=== PATIENT | female | born 1965 | race Asian ===

== ENCOUNTER 2020-06-22 20:31 | Inpatient (IN) | payer OTHER ==
[~2020-06-22] VITALS: Ht 154.9 cm; Wt 92.0 kg
[2020-06-22 21:04] LABS: GLUCOSE,POINT OF CARE 308 MG/DL (70-110)
[2020-06-22 21:11] LABS: COVID AG,FIA SOURCE NASOPHARYNGEAL
[2020-06-22] MEDS: OXYGEN THERAPY IH SCH (21:17)
[2020-06-22 21:33] LABS: BASOPHILS % (AUTO) 0.2 % (0.0-2.0); EOSINOPHILS % (AUTO) 0.1 % (1.0-6.0); HEMATOCRIT 43.7 % (36-46); HEMOGLOBIN 14.8 g/dL (12.0-16.0); LYMPHOCYTES % (AUTO) 11.6 % (22.0-44.0); MEAN CORPUSCULAR HEMOGLOBIN 31.8 pg (26.0-34.0); MEAN CORPUSCULAR HGB CONC 33.8 G/dL (31.0-37.0); MEAN CORPUSCULAR VOLUME 94 fL (80-100); MONOCYTES # (AUTO) 0.7 K/uL (0.1-1.0); NEUTROPHILS # (AUTO) 6.7 K/uL (1.8-7.7); NEUTROPHILS % (AUTO) 80.1 % (40.0-70.0); PLATELET COUNT (AUTO) 239 K/uL (150-450); RED BLOOD CELL COUNT(AUTO) 4.64 MIL/uL (4.00-5.20); RED CELL DISTRIBUTION WIDTH 12.4 % (11.5-14.5)
[2020-06-22 21:37] LABS: INFLUENZA TYPE A NEGATIVE FOR TYPE A (NEGATIVE); INFLUENZA TYPE B NEGATIVE FOR TYPE B (NEGATIVE)
[2020-06-22 21:46] LABS: ANION GAP 11 mmol/L (8-16); CALCIUM, TOTAL 8.3 mg/dL (8.8-10.5); CARBON DIOXIDE 22 mmol/L (22-29); CHLORIDE 98 mmol/L (98-107); CREATININE 0.99 mg/dL (0.60-1.30); GLOMERULAR FILTR. RATE CALC 58 mL/min (>60); GLUCOSE,RANDOM 339 mg/dL (70-110); POTASSIUM 3.5 mmol/L (3.5-5.1); SODIUM SERUM 131 mmol/L (136-145); UREA NITROGEN, BLOOD 20 mg/dL (7-18)
[2020-06-22 22:06] LABS: ACETONE,BLOOD NEGATIVE (NEGATIVE)
[2020-06-22 22:10] LABS: ALANINE AMINOTRANSFERASE 27 U/L (12-78); ALBUMIN 2.4 g/dL (3.4-5.0); ALKALINE PHOSPHATASE 80 U/L (46-116); ASPARTATE AMINOTRANSFERASE 45 U/L (15-37); BILIRUBIN,TOTAL 0.4 mg/dL (0.1-1.0); C-REACTIVE PROTEIN QUANT 6.32 mg/dL (0.00-0.30); CREATINE KINASE, TOTAL ONLY 117 U/L (26-192); FERRITIN 807 ng/mL (8-252); FREE T4 (FREE THYROXINE) 1.76 ng/dL (0.76-1.46); LACTATE DEHYDROGENASE 423 U/L (81-234); LIPASE 92 U/L (73-393); THYROID STIMULATING HORMONE 0.83 uIU/mL (0.36-3.74); TOTAL PROTEIN, SERUM 6.8 g/dL (6.4-8.2)
[2020-06-22 22:11] LABS: B-TYPE NATRIURETIC PEPTIDE 14 pg/mL (0-100)
[2020-06-22] MEDS ORDERED: DEXAMETHASONE 4 MG TABLET PO SCH (22:15)
[2020-06-22] MEDS ORDERED: DEXAMETHASONE SOD PHOS 4 MG/ML 5 ML VIAL IVP ONE (22:15)
[2020-06-22] MEDS ORDERED: 0.9% SODIUM CHLORIDE 10 ML SYRINGE IVP PRN (22:15)
[2020-06-22] MEDS ORDERED: ACETAMINOPHEN 325 MG TABLET PO PRN (22:15)
[2020-06-22] MEDS ORDERED: INSULIN REGULAR, HUMAN 100 UNITS/ML IVP ONE (22:15)
[2020-06-22] MEDS ORDERED: ONDANSETRON HCL 4 MG/2 ML VIAL IVP PRN (22:15)
[2020-06-22 22:17] LABS: D-DIMER 0.85 mg/L FEU (0.00-0.50); PROTHROMBIN TIME 10.6 SEC (9.4-11.6)
[2020-06-22] MEDS ORDERED: REMDESIVIR (EUA) 200 MG in SODIUM CHLORIDE 0.9% 210 ML IV ONE (23:00)
[2020-06-23] VITALS (9 sets, daily range): BP systolic 84–120; BP diastolic 36–72
[2020-06-23] MEDS ORDERED: ALBUTEROL SULFATE 2.5 MG/0.5 ML NEB SOLUTION NEB PRN (01:15)
[2020-06-23] MEDS ORDERED: HEPARIN SODIUM,PORCINE 5,000 UNITS/ML VIAL IVP PRN ×2 (01:15)
[2020-06-23] MEDS ORDERED: ONDANSETRON HCL 4 MG/2 ML VIAL IVP PRN (01:15)
[2020-06-23] MEDS ORDERED: MORPHINE SULFATE 2 MG/ML SYRINGE IVP PRN (01:15)
[2020-06-23] MEDS ORDERED: BISACODYL 10 MG RECTAL RECTAL SUPPOSITORY PR PRN (01:15)
[2020-06-23] MEDS ORDERED: IPRATROPIUM BROMIDE 0.5 MG/2.5 ML NEB SOLUTION NEB PRN (01:15)
[2020-06-23] MEDS ORDERED: DEXTROSE 50%-WATER 25 GM/50 ML SYRINGE IVP PRN (01:15)
[2020-06-23 02:10] LABS: PROTHROMBIN TIME 10.9 SEC (9.4-11.6)
[2020-06-23 02:23] LABS: C-REACTIVE PROTEIN QUANT 7.23 mg/dL (0.00-0.30)
[2020-06-23] MEDS: HEPARIN SODIUM 25000 UNITS/D5W 250 ML IV PRN (02:31)
[2020-06-23 03:37] LABS: GLUCOSE,POINT OF CARE 303 MG/DL (70-110)
[2020-06-23] MEDS: INSULIN LISPRO 100 UNITS/ML SQ PRN ×4 (03:45→21:54)
[2020-06-23] MEDS: ZOLPIDEM TARTRATE 5 MG TABLET PO PRN (03:45)
[2020-06-23 05:26] LABS: BASOPHILS % (AUTO) 0.1 % (0.0-2.0); EOSINOPHILS % (AUTO) 0 % (1.0-6.0); HEMATOCRIT 41.7 % (36-46); HEMOGLOBIN 14.5 g/dL (12.0-16.0); LYMPHOCYTES # (AUTO) 0.4 K/uL (1.0-4.8); MEAN CORPUSCULAR HGB CONC 34.8 G/dL (31.0-37.0); MEAN CORPUSCULAR VOLUME 95 fL (80-100); MONOCYTES # (AUTO) 0.2 K/uL (0.1-1.0); MONOCYTES % (AUTO) 3.8 % (2.0-9.0); NEUTROPHILS # (AUTO) 5.5 K/uL (1.8-7.7); PLATELET COUNT (AUTO) 214 K/uL (150-450); RED CELL DISTRIBUTION WIDTH 12.4 % (11.5-14.5)
[2020-06-23 05:27] LABS: GLUCOSE,POINT OF CARE 325 MG/DL (70-110)
[2020-06-23 05:28] LABS: NEUTROPHILS % (AUTO) 89.1 % (40.0-70.0)
[2020-06-23 05:55] LABS: ALANINE AMINOTRANSFERASE 26 U/L (12-78); ALBUMIN 2.3 g/dL (3.4-5.0); ALKALINE PHOSPHATASE 76 U/L (46-116); ANION GAP 11 mmol/L (8-16); ASPARTATE AMINOTRANSFERASE 41 U/L (15-37); BILIRUBIN,TOTAL 0.4 mg/dL (0.1-1.0); C-REACTIVE PROTEIN QUANT 8.39 mg/dL (0.00-0.30); CALCIUM, TOTAL 8.2 mg/dL (8.8-10.5); CARBON DIOXIDE 22 mmol/L (22-29); CHLORIDE 99 mmol/L (98-107); CREATININE 0.78 mg/dL (0.60-1.30); FERRITIN 749 ng/mL (8-252); GLOMERULAR FILTR. RATE CALC > 60 mL/min (>60); POTASSIUM 4.1 mmol/L (3.5-5.1); SODIUM SERUM 132 mmol/L (136-145); TOTAL PROTEIN, SERUM 6.7 g/dL (6.4-8.2); UREA NITROGEN, BLOOD 22 mg/dL (7-18)
[2020-06-23 06:01] LABS: GLUCOSE,RANDOM 405 mg/dL (70-110)
[2020-06-23] MEDS ORDERED: INSULIN LISPRO 100 UNITS/ML SQ ONE (06:30)
[2020-06-23] MEDS ORDERED: INSULIN GLARGINE,HUM.REC.ANLOG 100 UNITS/ML SQ ONE (06:30)
[2020-06-23] MEDS ORDERED: GLIP5 PO (07:22)
[2020-06-23] MEDS ORDERED: METF-960 PO (07:22)
[2020-06-23] MEDS ORDERED: INSU100V SQ (07:23)
[2020-06-23] MEDS ORDERED: HEPARIN SODIUM,PORCINE 5,000 UNITS/ML VIAL SQ SCH (08:00)
[2020-06-23] MEDS: OXYGEN THERAPY IH SCH ×2 (08:17→20:00)
[2020-06-23 08:21] LABS: GLUCOSE,POINT OF CARE 337 MG/DL (70-110)
[2020-06-23] MEDS: DOCUSATE SODIUM 100 MG CAPSULE PO SCH ×3 (08:34→21:16)
[2020-06-23 09:52] LABS: ABG A-A DIFF O2 547.1 mmHg (10-20.0); ABG BASE EXCESS -2.7 mmol/L (-2.0-3.0); ABG CARBOXYHEMOGLOBIN 0.2 % (0.0-1.5); ABG HCO3 22.5 mmol/L (22.0-26.0); ABG METHEMOGLOBIN 0.1 % (0.0-1.5); ABG OXYGEN CONTENT 18.3 mL/dL (15.0-23.0); ABG OXYGEN SATURATION 89.8 % (95.0-98.0); ABG OXYHEMOGLOBIN 89.5 % (94.0-100.0); ABG PCO2 36 mmHg (35-45); ABG PH 7.405 (7.35-7.450); ABG TOTAL HEMOGLOBIN 14.6 G/dL (12.0-18.0); PO2, ARTERIAL BG 58.2 mmHg (84.0-92.0); SOURCE, BLOOD GAS ARTERIAL; TEMPERATURE, FAHRENHEIT, BG 98.3 FAHREN (96.0-98.6)
[2020-06-23 09:53] LABS: O2 DEVICE,BLOOD GAS HI FL CANNULA (ROOM AIR); SITE, BLOOD GAS LFT RADIAL
[2020-06-23 19:14] LABS: GLUCOSE,POINT OF CARE 255 MG/DL (70-110)
[2020-06-23 19:25] LABS: GLUCOSE,POINT OF CARE 246 MG/DL (70-110)
[2020-06-23] MEDS ORDERED: SODIUM CHLORIDE 0.9% 250 ML IV ONE (20:45)
[2020-06-23] MEDS ORDERED: CHOLECALCIFEROL (VIT D3) 1,000 UNITS [25 MCG] TABLET PO ONE (21:00)
[2020-06-23] MEDS: ZINC SULFATE 220 MG CAPSULE PO SCH (21:16)
[2020-06-23] MEDS: FAMOTIDINE 20 MG TABLET PO SCH (21:16)
[2020-06-23] MEDS: ASCORBIC ACID 500 MG TABLET PO SCH (21:16)
[2020-06-23] MEDS: DEXAMETHASONE 2 MG TABLET PO SCH (21:20)
[2020-06-23] MEDS: REMDESIVIR (EUA) 100 MG in SODIUM CHLORIDE 0.9% 230 ML IV SCH (22:42)
[2020-06-24] VITALS: BP 105/44
[2020-06-24 00:10] LABS: GLUCOSE,POINT OF CARE 228 MG/DL (70-110)
[2020-06-24 04:00] VITALS: BP 101/64
[2020-06-24] MEDS: INSULIN LISPRO 100 UNITS/ML SQ PRN ×4 (05:29→19:56)
[2020-06-24 05:52] LABS: BASOPHILS % (AUTO) 0.1 % (0.0-2.0); EOSINOPHILS % (AUTO) 0 % (1.0-6.0); HEMATOCRIT 42.4 % (36-46); HEMOGLOBIN 14.7 g/dL (12.0-16.0); LYMPHOCYTES # (AUTO) 0.9 K/uL (1.0-4.8); LYMPHOCYTES % (AUTO) 9.3 % (22.0-44.0); MEAN CORPUSCULAR HEMOGLOBIN 32.7 pg (26.0-34.0); MEAN CORPUSCULAR HGB CONC 34.7 G/dL (31.0-37.0); MEAN CORPUSCULAR VOLUME 94 fL (80-100); MONOCYTES # (AUTO) 0.7 K/uL (0.1-1.0); NEUTROPHILS % (AUTO) 83.6 % (40.0-70.0); PLATELET COUNT (AUTO) 250 K/uL (150-450); RED BLOOD CELL COUNT(AUTO) 4.49 MIL/uL (4.00-5.20); RED CELL DISTRIBUTION WIDTH 11.9 % (11.5-14.5)
[2020-06-24 06:04] LABS: ALANINE AMINOTRANSFERASE 39 U/L (12-78); ALBUMIN 2.2 g/dL (3.4-5.0); ALKALINE PHOSPHATASE 74 U/L (46-116); ANION GAP 9 mmol/L (8-16); ASPARTATE AMINOTRANSFERASE 45 U/L (15-37); BILIRUBIN,TOTAL 0.3 mg/dL (0.1-1.0); C-REACTIVE PROTEIN QUANT 5.36 mg/dL (0.00-0.30); CALCIUM, TOTAL 8.4 mg/dL (8.8-10.5); CARBON DIOXIDE 23 mmol/L (22-29); CHLORIDE 102 mmol/L (98-107); CREATININE 0.88 mg/dL (0.60-1.30); FERRITIN 702 ng/mL (8-252); GLOMERULAR FILTR. RATE CALC > 60 mL/min (>60); GLUCOSE,RANDOM 339 mg/dL (70-110); POTASSIUM 4.1 mmol/L (3.5-5.1); SODIUM SERUM 134 mmol/L (136-145); TOTAL PROTEIN, SERUM 6.6 g/dL (6.4-8.2); UREA NITROGEN, BLOOD 31 mg/dL (7-18)
[2020-06-24 08:00] VITALS: BP 105/63
[2020-06-24 08:00] LABS: GLUCOSE,POINT OF CARE 331 MG/DL (70-110)
[2020-06-24] MEDS: CHOLECALCIFEROL (VIT D3) 1,000 UNITS [25 MCG] TABLET PO SCH (08:32)
[2020-06-24] MEDS: ASCORBIC ACID 500 MG TABLET PO SCH ×2 (08:32→19:57)
[2020-06-24] MEDS: DOCUSATE SODIUM 100 MG CAPSULE PO SCH ×2 (08:32→19:57)
[2020-06-24] MEDS: FAMOTIDINE 20 MG TABLET PO SCH ×2 (08:32→19:57)
[2020-06-24] MEDS: DEXAMETHASONE 2 MG TABLET PO SCH (08:32)
[2020-06-24] MEDS: ZINC SULFATE 220 MG CAPSULE PO SCH ×2 (08:32→19:57)
[2020-06-24] MEDS: OXYGEN THERAPY IH SCH ×2 (08:33→19:57)
[2020-06-24 08:50] LABS: D-DIMER 0.39 mg/L FEU (0.00-0.50)
[2020-06-24 12:00] VITALS: BP 118/72
[2020-06-24] MEDS: HEPARIN SODIUM 25000 UNITS/D5W 250 ML IV PRN (13:34)
[2020-06-24 16:00] VITALS: BP 108/66
[2020-06-24 16:22] LABS: GLUCOSE,POINT OF CARE 315 MG/DL (70-110)
[2020-06-24 18:03] LABS: GLUCOSE,POINT OF CARE 351 MG/DL (70-110)
[2020-06-24 20:00] VITALS: BP 114/74
[2020-06-24] MEDS: ZOLPIDEM TARTRATE 5 MG TABLET PO PRN (22:54)
[2020-06-24] MEDS: REMDESIVIR (EUA) 100 MG in SODIUM CHLORIDE 0.9% 230 ML IV SCH (22:55)
[2020-06-24] MEDS ORDERED: SODIUM CHLORIDE 0.9% 250 ML IV ONE (23:13)
[2020-06-25] VITALS: BP 99/53
[2020-06-25 01:08] LABS: GLUCOSE,POINT OF CARE 398 MG/DL (70-110)
[2020-06-25 04:00] VITALS: BP 110/50
[2020-06-25] MEDS: INSULIN LISPRO 100 UNITS/ML SQ PRN ×4 (05:33→20:05)
[2020-06-25 06:01] LABS: D-DIMER 0.37 mg/L FEU (0.00-0.50)
[2020-06-25 06:27] LABS: BASOPHILS % (AUTO) 0.1 % (0.0-2.0); EOSINOPHILS % (AUTO) 0 % (1.0-6.0); HEMATOCRIT 40.2 % (36-46); HEMOGLOBIN 13.6 g/dL (12.0-16.0); LYMPHOCYTES # (AUTO) 1.3 K/uL (1.0-4.8); LYMPHOCYTES % (AUTO) 8.1 % (22.0-44.0); MEAN CORPUSCULAR HEMOGLOBIN 32.1 pg (26.0-34.0); MEAN CORPUSCULAR HGB CONC 33.9 G/dL (31.0-37.0); MEAN CORPUSCULAR VOLUME 95 fL (80-100); MONOCYTES # (AUTO) 1.2 K/uL (0.1-1.0); MONOCYTES % (AUTO) 7.7 % (2.0-9.0); NEUTROPHILS # (AUTO) 13.1 K/uL (1.8-7.7); NEUTROPHILS % (AUTO) 84.1 % (40.0-70.0); PLATELET COUNT (AUTO) 296 K/uL (150-450); RED BLOOD CELL COUNT(AUTO) 4.25 MIL/uL (4.00-5.20); RED CELL DISTRIBUTION WIDTH 12.3 % (11.5-14.5)
[2020-06-25 06:54] LABS: GLUCOSE,POINT OF CARE 236 MG/DL (70-110)
[2020-06-25 07:46] LABS: ALANINE AMINOTRANSFERASE 32 U/L (12-78); ALBUMIN 2.1 g/dL (3.4-5.0); ALKALINE PHOSPHATASE 72 U/L (46-116); ANION GAP 11 mmol/L (8-16); ASPARTATE AMINOTRANSFERASE 28 U/L (15-37); BILIRUBIN,TOTAL 0.3 mg/dL (0.1-1.0); C-REACTIVE PROTEIN QUANT 1.97 mg/dL (0.00-0.30); CALCIUM, TOTAL 8.9 mg/dL (8.8-10.5); CARBON DIOXIDE 22 mmol/L (22-29); CHLORIDE 105 mmol/L (98-107); CREATININE 0.84 mg/dL (0.60-1.30); FERRITIN 579 ng/mL (8-252); GLOMERULAR FILTR. RATE CALC > 60 mL/min (>60); GLUCOSE,RANDOM 259 mg/dL (70-110); PHOSPHORUS 3.8 mg/dL (2.5-4.9); SODIUM SERUM 138 mmol/L (136-145); TOTAL PROTEIN, SERUM 6.1 g/dL (6.4-8.2); UREA NITROGEN, BLOOD 31 mg/dL (7-18)
[2020-06-25 08:00] VITALS: BP 113/59
[2020-06-25] MEDS: OXYGEN THERAPY IH SCH ×2 (08:06→20:03)
[2020-06-25] MEDS: ASCORBIC ACID 500 MG TABLET PO SCH ×2 (08:07→20:03)
[2020-06-25] MEDS: DOCUSATE SODIUM 100 MG CAPSULE PO SCH ×2 (08:07→20:03)
[2020-06-25] MEDS: DEXAMETHASONE 2 MG TABLET PO SCH (08:07)
[2020-06-25] MEDS: CHOLECALCIFEROL (VIT D3) 1,000 UNITS [25 MCG] TABLET PO SCH (08:08)
[2020-06-25] MEDS: ZINC SULFATE 220 MG CAPSULE PO SCH ×2 (08:08→20:03)
[2020-06-25] MEDS: FAMOTIDINE 20 MG TABLET PO SCH ×2 (08:09→20:03)
[2020-06-25 12:00] VITALS: BP 101/61
[2020-06-25 15:59] LABS: GLUCOSE,POINT OF CARE 329 MG/DL (70-110)
[2020-06-25 16:00] VITALS: BP 120/78
[2020-06-25] MEDS ORDERED: DEXTROSE 5%-WATER 1,000 ML IV SCH ×2 (18:45→20:00)
[2020-06-25] MEDS ORDERED: DEXTROSE 50%-WATER 25 GM/50 ML SYRINGE IVP PRN ×2 (18:45→19:00)
[2020-06-25 19:19] LABS: GLUCOSE,POINT OF CARE 361 MG/DL (70-110)
[2020-06-25 20:00] VITALS: BP 106/61
[2020-06-25] MEDS ORDERED: INSULIN REGULAR, HUMAN 100 UNITS in SODIUM CHLORIDE 0.9% 99 ML IV PRN ×2 (20:00)
[2020-06-25] MEDS: ZOLPIDEM TARTRATE 5 MG TABLET PO PRN (20:03)
[2020-06-25] MEDS: INSULIN GLARGINE,HUM.REC.ANLOG 100 UNITS/ML SQ SCH (20:05)
[2020-06-25] MEDS ORDERED: INSULIN GLARGINE,HUM.REC.ANLOG 100 UNITS/ML SQ SCH (21:00)
[2020-06-25] MEDS: REMDESIVIR (EUA) 100 MG in SODIUM CHLORIDE 0.9% 230 ML IV SCH (23:01)
[2020-06-25] MEDS ORDERED: SODIUM CHLORIDE 0.9% 250 ML IV ONE (23:03)
[2020-06-26] VITALS: BP 111/65
[2020-06-26 01:01] LABS: GLUCOSE,POINT OF CARE 295 MG/DL (70-110)
[2020-06-26] MEDS: HEPARIN SODIUM 25000 UNITS/D5W 250 ML IV PRN (03:58)
[2020-06-26 04:00] VITALS: BP 105/61
[2020-06-26 06:04] LABS: BASOPHILS % (AUTO) 0.2 % (0.0-2.0); EOSINOPHILS % (AUTO) 0.3 % (1.0-6.0); HEMATOCRIT 39.6 % (36-46); HEMOGLOBIN 13.5 g/dL (12.0-16.0); LYMPHOCYTES # (AUTO) 1.9 K/uL (1.0-4.8); LYMPHOCYTES % (AUTO) 15.4 % (22.0-44.0); MEAN CORPUSCULAR HEMOGLOBIN 32.1 pg (26.0-34.0); MEAN CORPUSCULAR HGB CONC 34.2 G/dL (31.0-37.0); MEAN CORPUSCULAR VOLUME 94 fL (80-100); MONOCYTES % (AUTO) 7.7 % (2.0-9.0); NEUTROPHILS # (AUTO) 9.6 K/uL (1.8-7.7); NEUTROPHILS % (AUTO) 76.4 % (40.0-70.0); PLATELET COUNT (AUTO) 289 K/uL (150-450); RED BLOOD CELL COUNT(AUTO) 4.22 MIL/uL (4.00-5.20); RED CELL DISTRIBUTION WIDTH 12.3 % (11.5-14.5)
[2020-06-26 06:10] LABS: D-DIMER 0.49 mg/L FEU (0.00-0.50)
[2020-06-26 06:26] LABS: ALANINE AMINOTRANSFERASE 28 U/L (12-78); ALBUMIN 2.1 g/dL (3.4-5.0); ALKALINE PHOSPHATASE 79 U/L (46-116); ANION GAP 8 mmol/L (8-16); ASPARTATE AMINOTRANSFERASE 23 U/L (15-37); BILIRUBIN,TOTAL 0.4 mg/dL (0.1-1.0); C-REACTIVE PROTEIN QUANT 2.06 mg/dL (0.00-0.30); CARBON DIOXIDE 24 mmol/L (22-29); CHLORIDE 104 mmol/L (98-107); CREATININE 0.73 mg/dL (0.60-1.30); FERRITIN 527 ng/mL (8-252); GLOMERULAR FILTR. RATE CALC > 60 mL/min (>60); GLUCOSE,RANDOM 143 mg/dL (70-110); POTASSIUM 3.6 mmol/L (3.5-5.1); SODIUM SERUM 136 mmol/L (136-145); UREA NITROGEN, BLOOD 23 mg/dL (7-18)
[2020-06-26 08:00] VITALS: BP 95/62
[2020-06-26] MEDS: OXYGEN THERAPY IH SCH ×2 (08:05→20:35)
[2020-06-26] MEDS: MAGNESIUM HYDROXIDE SUSPENSION 30 ML UDCUP PO PRN (08:06)
[2020-06-26] MEDS: ZINC SULFATE 220 MG CAPSULE PO SCH ×2 (08:06→20:34)
[2020-06-26] MEDS: CHOLECALCIFEROL (VIT D3) 1,000 UNITS [25 MCG] TABLET PO SCH (08:06)
[2020-06-26] MEDS: ASCORBIC ACID 500 MG TABLET PO SCH ×2 (08:06→20:34)
[2020-06-26] MEDS: DEXAMETHASONE 2 MG TABLET PO SCH (08:06)
[2020-06-26] MEDS: DOCUSATE SODIUM 100 MG CAPSULE PO SCH ×2 (08:07→20:34)
[2020-06-26] MEDS: FAMOTIDINE 20 MG TABLET PO SCH ×2 (08:07→20:34)
[2020-06-26] MEDS: INSULIN LISPRO 100 UNITS/ML SQ PRN ×4 (08:08→21:38)
[2020-06-26 08:34] LABS: GLUCOSE,POINT OF CARE 90 MG/DL (70-110)
[2020-06-26 08:37] LABS: GLUCOSE,POINT OF CARE 181 MG/DL (70-110)
[2020-06-26] MEDS: APIXABAN 5 MG TABLET PO SCH ×2 (10:43→20:34)
[2020-06-26 12:00] VITALS: BP 112/68
[2020-06-26 14:27] LABS: GLUCOSE,POINT OF CARE 293 MG/DL (70-110)
[2020-06-26 16:00] VITALS: BP 100/53
[2020-06-26 19:30] LABS: GLUCOSE,POINT OF CARE 381 MG/DL (70-110)
[2020-06-26 20:00] VITALS: BP 110/58
[2020-06-26] MEDS: INSULIN GLARGINE,HUM.REC.ANLOG 100 UNITS/ML SQ SCH (20:37)
[2020-06-26] MEDS: REMDESIVIR (EUA) 100 MG in SODIUM CHLORIDE 0.9% 230 ML IV SCH (22:20)
[2020-06-27] VITALS: BP 113/69
[2020-06-27 04:00] VITALS: BP 98/58
[2020-06-27 04:40] LABS: GLUCOSE,POINT OF CARE 327 MG/DL (70-110)
[2020-06-27 04:40] LABS: GLUCOSE,POINT OF CARE 348 MG/DL (70-110)
[2020-06-27] MEDS: INSULIN LISPRO 100 UNITS/ML SQ PRN ×5 (06:51→20:10)
[2020-06-27 07:11] LABS: GLUCOSE,POINT OF CARE 148 MG/DL (70-110)
[2020-06-27] MEDS ORDERED: LACTULOSE 20 GM/30 ML SOLUTION UDCUP PO PRN (07:30)
[2020-06-27 07:36] LABS: BASOPHILS % (AUTO) 0.2 % (0.0-2.0); EOSINOPHILS % (AUTO) 0.9 % (1.0-6.0); HEMATOCRIT 39.9 % (36-46); HEMOGLOBIN 13.6 g/dL (12.0-16.0); LYMPHOCYTES # (AUTO) 1.4 K/uL (1.0-4.8); LYMPHOCYTES % (AUTO) 11.9 % (22.0-44.0); MEAN CORPUSCULAR HEMOGLOBIN 32.2 pg (26.0-34.0); MEAN CORPUSCULAR HGB CONC 34.1 G/dL (31.0-37.0); MEAN CORPUSCULAR VOLUME 94 fL (80-100); MONOCYTES # (AUTO) 0.8 K/uL (0.1-1.0); MONOCYTES % (AUTO) 7.2 % (2.0-9.0); NEUTROPHILS # (AUTO) 9.3 K/uL (1.8-7.7); NEUTROPHILS % (AUTO) 79.8 % (40.0-70.0); PLATELET COUNT (AUTO) 285 K/uL (150-450); RED BLOOD CELL COUNT(AUTO) 4.23 MIL/uL (4.00-5.20); RED CELL DISTRIBUTION WIDTH 12.2 % (11.5-14.5)
[2020-06-27 07:42] LABS: ANION GAP 10 mmol/L (8-16); CALCIUM, TOTAL 8.2 mg/dL (8.8-10.5); CARBON DIOXIDE 26 mmol/L (22-29); CHLORIDE 105 mmol/L (98-107); CREATININE 0.59 mg/dL (0.60-1.30); GLOMERULAR FILTR. RATE CALC > 60 mL/min (>60); GLUCOSE,RANDOM 111 mg/dL (70-110); POTASSIUM 3.7 mmol/L (3.5-5.1); SODIUM SERUM 141 mmol/L (136-145); UREA NITROGEN, BLOOD 19 mg/dL (7-18)
[2020-06-27 08:00] VITALS: BP 105/65
[2020-06-27] MEDS: ASCORBIC ACID 500 MG TABLET PO SCH ×2 (08:23→20:06)
[2020-06-27] MEDS: DOCUSATE SODIUM 100 MG CAPSULE PO SCH ×2 (08:23→20:06)
[2020-06-27] MEDS: ZINC SULFATE 220 MG CAPSULE PO SCH ×2 (08:23→20:06)
[2020-06-27] MEDS: APIXABAN 5 MG TABLET PO SCH ×2 (08:23→20:06)
[2020-06-27] MEDS: ACETAMINOPHEN 325 MG TABLET PO PRN (08:23)
[2020-06-27] MEDS: DEXAMETHASONE 2 MG TABLET PO SCH (08:24)
[2020-06-27] MEDS: FAMOTIDINE 20 MG TABLET PO SCH ×2 (08:24→20:06)
[2020-06-27] MEDS: CHOLECALCIFEROL (VIT D3) 1,000 UNITS [25 MCG] TABLET PO SCH (08:24)
[2020-06-27] MEDS: INSULIN GLARGINE,HUM.REC.ANLOG 100 UNITS/ML SQ SCH ×2 (08:25→20:10)
[2020-06-27 08:28] LABS: GLUCOSE,POINT OF CARE 147 MG/DL (70-110)
[2020-06-27 12:00] VITALS: BP 112/60
[2020-06-27 14:17] LABS: GLUCOSE,POINT OF CARE 212 MG/DL (70-110)
[2020-06-27 16:00] VITALS: BP 107/70
[2020-06-27 18:41] LABS: GLUCOSE,POINT OF CARE 374 MG/DL (70-110)
[2020-06-27 20:00] VITALS: BP 97/60
[2020-06-27 20:32] LABS: GLUCOSE,POINT OF CARE 303 MG/DL (70-110)
[2020-06-28] VITALS (7 sets, daily range): BP systolic 90–122; BP diastolic 30–82
[2020-06-28] MEDS: HYDROCODONE/ACETAMINOPHEN 5-325 MG TABLET PO PRN (03:28)
[2020-06-28] MEDS: INSULIN LISPRO 100 UNITS/ML SQ PRN ×2 (06:41→13:45)
[2020-06-28 07:14] LABS: GLUCOSE,POINT OF CARE 167 MG/DL (70-110)
[2020-06-28 07:15] LABS: ALANINE AMINOTRANSFERASE 18 U/L (12-78); ALKALINE PHOSPHATASE 83 U/L (46-116); ANION GAP 6 mmol/L (8-16); ASPARTATE AMINOTRANSFERASE 19 U/L (15-37); BILIRUBIN,TOTAL 0.5 mg/dL (0.1-1.0); C-REACTIVE PROTEIN QUANT 8.29 mg/dL (0.00-0.30); CARBON DIOXIDE 25 mmol/L (22-29); CHLORIDE 102 mmol/L (98-107); CREATININE 0.64 mg/dL (0.60-1.30); FERRITIN 492 ng/mL (8-252); GLOMERULAR FILTR. RATE CALC > 60 mL/min (>60); GLUCOSE,RANDOM 190 mg/dL (70-110); POTASSIUM 4.4 mmol/L (3.5-5.1); SODIUM SERUM 133 mmol/L (136-145); TOTAL PROTEIN, SERUM 6.3 g/dL (6.4-8.2); UREA NITROGEN, BLOOD 25 mg/dL (7-18)
[2020-06-28 08:25] LABS: ABG A-A DIFF O2 627.9 mmHg (10-20.0); ABG BASE EXCESS -1.7 mmol/L (-2.0-3.0); ABG CARBOXYHEMOGLOBIN 0.9 % (0.0-1.5); ABG HCO3 23.4 mmol/L (22.0-26.0); ABG METHEMOGLOBIN 0.3 % (0.0-1.5); ABG OXYGEN SATURATION 86.6 % (95.0-98.0); ABG OXYHEMOGLOBIN 85.6 % (94.0-100.0); ABG PCO2 34 mmHg (35-45); ABG PH 7.442 (7.35-7.450); PO2, ARTERIAL BG 51.5 mmHg (84.0-92.0); SOURCE, BLOOD GAS ARTERIAL; TEMPERATURE, FAHRENHEIT, BG 98.6 FAHREN (96.0-98.6)
[2020-06-28 08:26] LABS: O2 DEVICE,BLOOD GAS HI FL CANNULA (ROOM AIR); SITE, BLOOD GAS RT RADIAL
[2020-06-28] MEDS: MAGNESIUM HYDROXIDE SUSPENSION 30 ML UDCUP PO PRN (08:43)
[2020-06-28] MEDS: APIXABAN 5 MG TABLET PO SCH ×2 (08:44→20:51)
[2020-06-28] MEDS: DOCUSATE SODIUM 100 MG CAPSULE PO SCH ×2 (08:44→20:51)
[2020-06-28] MEDS: CHOLECALCIFEROL (VIT D3) 1,000 UNITS [25 MCG] TABLET PO SCH (08:44)
[2020-06-28] MEDS: ASCORBIC ACID 500 MG TABLET PO SCH ×2 (08:44→20:50)
[2020-06-28] MEDS: DEXAMETHASONE 2 MG TABLET PO SCH (08:44)
[2020-06-28] MEDS: FAMOTIDINE 20 MG TABLET PO SCH ×2 (08:45→20:50)
[2020-06-28] MEDS: INSULIN GLARGINE,HUM.REC.ANLOG 100 UNITS/ML SQ SCH (08:48)
[2020-06-28] MEDS: ZINC SULFATE 220 MG CAPSULE PO SCH ×2 (10:54→20:51)
[2020-06-28] MEDS ORDERED: PROPOFOL 1000 MG/ISO-OSM 100 ML IV ONE (11:54)
[2020-06-28] MEDS ORDERED: ETOMIDATE 2 MG/ML 10 ML VIAL ONE (11:59)
[2020-06-28] MEDS ORDERED: SODIUM CHLORIDE 0.9% 250 ML IV ONE (12:58)
[2020-06-28] MEDS ORDERED: SODIUM CHLORIDE 0.9% 500 ML IV ONE (12:58)
[2020-06-28] MEDS: FentaNYL CITRATE PF 500 MCG in DEXTROSE 5%-WATER 90 ML IV PRN ×2 (13:17→21:26)
[2020-06-28] MEDS: CISATRACURIUM BESYLATE 50 MG in DEXTROSE 5%-WATER 245 ML IV PRN ×3 (13:42→22:21)
[2020-06-28] MEDS ORDERED: INSULIN GLARGINE,HUM.REC.ANLOG 100 UNITS/ML SQ STA (14:58)
[2020-06-28 15:29] LABS: ABG A-A DIFF O2 525.7 mmHg (10-20.0); ABG BASE EXCESS -5.4 mmol/L (-2.0-3.0); ABG CARBOXYHEMOGLOBIN 0.4 % (0.0-1.5); ABG HCO3 18.2 mmol/L (22.0-26.0); ABG METHEMOGLOBIN 0.1 % (0.0-1.5); ABG OXYGEN CONTENT 21.3 mL/dL (15.0-23.0); ABG OXYGEN SATURATION 95.5 % (95.0-98.0); ABG TOTAL HEMOGLOBIN 15.9 G/dL (12.0-18.0); PO2, ARTERIAL BG 97.4 mmHg (84.0-92.0); SOURCE, BLOOD GAS ARTERIAL; TEMPERATURE, FAHRENHEIT, BG 98.6 FAHREN (96.0-98.6)
[2020-06-28 15:31] LABS: ABG PCO2 90 mmHg (35-45); ABG PH 7.061 (7.35-7.450); O2 DEVICE,BLOOD GAS VENTILATOR (ROOM AIR); SITE, BLOOD GAS ARTERIAL LINE; VT, ABG 400 ml
[2020-06-28 15:32] LABS: PEEP,BG 10 cm H2O
[2020-06-28] MEDS ORDERED: NOREPINEPHRINE 4 MG/D5%-WATER 250 ML IV PRN (16:00)
[2020-06-28 16:48] LABS: ABG A-A DIFF O2 552.8 mmHg (10-20.0); ABG BASE EXCESS -7.3 mmol/L (-2.0-3.0); ABG CARBOXYHEMOGLOBIN 0.9 % (0.0-1.5); ABG HCO3 17.8 mmol/L (22.0-26.0); ABG METHEMOGLOBIN 0.3 % (0.0-1.5); ABG OXYGEN CONTENT 20.9 mL/dL (15.0-23.0); ABG OXYGEN SATURATION 96.3 % (95.0-98.0); ABG OXYHEMOGLOBIN 95.1 % (94.0-100.0); ABG PCO2 64 mmHg (35-45); ABG TOTAL HEMOGLOBIN 15.6 G/dL (12.0-18.0); PO2, ARTERIAL BG 95.8 mmHg (84.0-92.0); SOURCE, BLOOD GAS ARTERIAL; TEMPERATURE, FAHRENHEIT, BG 98.6 FAHREN (96.0-98.6)
[2020-06-28 16:50] LABS: ABG PH 7.145 (7.35-7.450); O2 DEVICE,BLOOD GAS VENTILATOR (ROOM AIR); PEEP,BG 10 cm H2O; SITE, BLOOD GAS ARTERIAL LINE; VT, ABG 450 ml
[2020-06-28] MEDS: MIDAZOLAM HCL 100 MG in DEXTROSE 5%-WATER 180 ML IV PRN ×2 (17:12→19:08)
[2020-06-28] MEDS: ALBUMIN HUMAN 25%-25GM/100ML 100 ML IV SCH ×2 (17:13→23:42)
[2020-06-28 17:44] LABS: GLUCOSE,POINT OF CARE 578 MG/DL (70-110)
[2020-06-28 17:44] LABS: GLUCOSE,POINT OF CARE 536 MG/DL (70-110)
[2020-06-28] MEDS: INSULIN REGULAR, HUMAN 100 UNITS in SODIUM CHLORIDE 0.9% 99 ML IV PRN ×2 (19:05)
[2020-06-28 19:10] LABS: GLUCOSE,POINT OF CARE 406 MG/DL (70-110)
[2020-06-28] MEDS ORDERED: INSULIN REGULAR, HUMAN 100 UNITS in SODIUM CHLORIDE 0.9% 99 ML IV PRN ×2 (20:00)
[2020-06-28] MEDS ORDERED: DEXTROSE 5%-WATER 1,000 ML IV SCH (20:00)
[2020-06-28] MEDS ORDERED: DEXTROSE 50%-WATER 25 GM/50 ML SYRINGE IVP PRN (20:00)
[2020-06-29] VITALS: BP 107/67
[2020-06-29 04:00] VITALS: BP 101/64
[2020-06-29 05:33] LABS: BASOPHILS % (AUTO) 0.1 % (0.0-2.0); EOSINOPHILS % (AUTO) 0.5 % (1.0-6.0); HEMATOCRIT 35.6 % (36-46); HEMOGLOBIN 12.1 g/dL (12.0-16.0); LYMPHOCYTES # (AUTO) 1.1 K/uL (1.0-4.8); LYMPHOCYTES % (AUTO) 6.5 % (22.0-44.0); MEAN CORPUSCULAR HEMOGLOBIN 32.3 pg (26.0-34.0); MEAN CORPUSCULAR HGB CONC 33.9 G/dL (31.0-37.0); MEAN CORPUSCULAR VOLUME 95 fL (80-100); MONOCYTES % (AUTO) 6.2 % (2.0-9.0); PLATELET COUNT (AUTO) 354 K/uL (150-450); RED BLOOD CELL COUNT(AUTO) 3.73 MIL/uL (4.00-5.20); RED CELL DISTRIBUTION WIDTH 12.4 % (11.5-14.5)
[2020-06-29] MEDS: CISATRACURIUM BESYLATE 50 MG in DEXTROSE 5%-WATER 245 ML IV PRN ×4 (05:33→21:56)
[2020-06-29] MEDS: INSULIN REGULAR, HUMAN 100 UNITS in SODIUM CHLORIDE 0.9% 99 ML IV PRN ×2 (05:35)
[2020-06-29 05:45] LABS: NEUTROPHILS % (AUTO) 86.7 % (40.0-70.0)
[2020-06-29 06:16] LABS: ALANINE AMINOTRANSFERASE 23 U/L (12-78); ALBUMIN 2.8 g/dL (3.4-5.0); ALKALINE PHOSPHATASE 70 U/L (46-116); ANION GAP 6 mmol/L (8-16); ASPARTATE AMINOTRANSFERASE 15 U/L (15-37); BILIRUBIN,TOTAL 0.5 mg/dL (0.1-1.0); C-REACTIVE PROTEIN QUANT 6.81 mg/dL (0.00-0.30); CALCIUM, TOTAL 8.4 mg/dL (8.8-10.5); CARBON DIOXIDE 27 mmol/L (22-29); CHLORIDE 99 mmol/L (98-107); CREATININE 0.71 mg/dL (0.60-1.30); FERRITIN 509 ng/mL (8-252); GLOMERULAR FILTR. RATE CALC > 60 mL/min (>60); GLUCOSE,RANDOM 154 mg/dL (70-110); SODIUM SERUM 132 mmol/L (136-145); TOTAL PROTEIN, SERUM 6.6 g/dL (6.4-8.2); UREA NITROGEN, BLOOD 25 mg/dL (7-18)
[2020-06-29] MEDS: PROPOFOL 1000 MG/ISO-OSM 100 ML IV PRN ×2 (07:51→18:13)
[2020-06-29] MEDS: ALBUMIN HUMAN 25%-25GM/100ML 100 ML IV SCH ×2 (07:51→17:48)
[2020-06-29] MEDS: CHOLECALCIFEROL (VIT D3) 1,000 UNITS [25 MCG] TABLET PO SCH (07:52)
[2020-06-29] MEDS: FAMOTIDINE 20 MG TABLET PO SCH ×2 (07:52→20:02)
[2020-06-29] MEDS: DOCUSATE SODIUM 100 MG CAPSULE PO SCH ×2 (07:53→20:02)
[2020-06-29] MEDS: ASCORBIC ACID 500 MG TABLET PO SCH ×2 (07:53→20:02)
[2020-06-29] MEDS: ZINC SULFATE 220 MG CAPSULE PO SCH ×2 (07:53→20:02)
[2020-06-29] MEDS: APIXABAN 5 MG TABLET PO SCH ×2 (07:53→20:02)
[2020-06-29] MEDS: DEXAMETHASONE 2 MG TABLET PO SCH (07:53)
[2020-06-29 08:00] VITALS: BP 133/76
[2020-06-29 08:24] LABS: GLUCOSE,POINT OF CARE 443 MG/DL (70-110)
[2020-06-29 08:24] LABS: GLUCOSE,POINT OF CARE 209 MG/DL (70-110)
[2020-06-29 08:24] LABS: GLUCOSE,POINT OF CARE 438 MG/DL (70-110)
[2020-06-29 08:24] LABS: GLUCOSE,POINT OF CARE 138 MG/DL (70-110)
[2020-06-29 08:24] LABS: GLUCOSE,POINT OF CARE 193 MG/DL (70-110)
[2020-06-29 08:24] LABS: GLUCOSE,POINT OF CARE 481 MG/DL (70-110)
[2020-06-29 08:24] LABS: GLUCOSE,POINT OF CARE 191 MG/DL (70-110)
[2020-06-29 08:24] LABS: GLUCOSE,POINT OF CARE 142 MG/DL (70-110)
[2020-06-29 08:24] LABS: GLUCOSE,POINT OF CARE 223 MG/DL (70-110)
[2020-06-29 08:24] LABS: GLUCOSE,POINT OF CARE 177 MG/DL (70-110)
[2020-06-29] MEDS ORDERED: INSULIN GLARGINE,HUM.REC.ANLOG 100 UNITS/ML SQ SCH (09:00)
[2020-06-29] MEDS: INSULIN GLARGINE,HUM.REC.ANLOG 100 UNITS/ML SQ SCH ×2 (09:10→20:05)
[2020-06-29] MEDS: FentaNYL CITRATE PF 500 MCG in DEXTROSE 5%-WATER 90 ML IV PRN ×2 (09:32→22:13)
[2020-06-29] MEDS: MIDAZOLAM HCL 100 MG in DEXTROSE 5%-WATER 180 ML IV PRN (10:18)
[2020-06-29 11:09] LABS: ABG A-A DIFF O2 478.7 mmHg (10-20.0); ABG CARBOXYHEMOGLOBIN 0.3 % (0.0-1.5); ABG METHEMOGLOBIN 0.3 % (0.0-1.5); ABG OXYGEN CONTENT 16.5 mL/dL (15.0-23.0); ABG OXYGEN SATURATION 98.8 % (95.0-98.0); ABG OXYHEMOGLOBIN 98.2 % (94.0-100.0); ABG PCO2 40 mmHg (35-45); ABG PH 7.377 (7.35-7.450); ABG TOTAL HEMOGLOBIN 11.8 G/dL (12.0-18.0); O2 DEVICE,BLOOD GAS VENTILATOR (ROOM AIR); PO2, ARTERIAL BG 120.6 mmHg (84.0-92.0); SITE, BLOOD GAS ARTERIAL LINE; SOURCE, BLOOD GAS ARTERIAL; TEMPERATURE, FAHRENHEIT, BG 99.3 FAHREN (96.0-98.6)
[2020-06-29 11:10] LABS: PEEP,BG 10 cm H2O; VT, ABG 450 ml
[2020-06-29 12:00] VITALS: BP 108/65
[2020-06-29] MEDS ORDERED: DEXTROSE 50%-WATER 25 GM/50 ML SYRINGE IVP PRN ×2 (13:30→18:30)
[2020-06-29] MEDS: INSULIN LISPRO 100 UNITS/ML SQ PRN ×2 (13:44→18:12)
[2020-06-29] MEDS: CefTRIAXone 1 GM/DEXTROSE 50 ML IV SCH (14:47)
[2020-06-29 16:00] VITALS: BP 117/69
[2020-06-29 20:00] VITALS: BP 109/62
[2020-06-29 20:29] LABS: GLUCOSE,POINT OF CARE 182 MG/DL (70-110)
[2020-06-29 20:30] LABS: GLUCOSE,POINT OF CARE 282 MG/DL (70-110)
[2020-06-29 20:30] LABS: GLUCOSE,POINT OF CARE 288 MG/DL (70-110)
[2020-06-29 20:30] LABS: GLUCOSE,POINT OF CARE 317 MG/DL (70-110)
[2020-06-30] VITALS: BP 119/64
[2020-06-30] MEDS: ALBUMIN HUMAN 25%-25GM/100ML 100 ML IV SCH ×4 (00:18→23:06)
[2020-06-30] MEDS: INSULIN LISPRO 100 UNITS/ML SQ PRN ×5 (00:54→23:17)
[2020-06-30 01:02] LABS: GLUCOSE,POINT OF CARE 301 MG/DL (70-110)
[2020-06-30 04:00] VITALS: BP 119/66
[2020-06-30] MEDS: PROPOFOL 1000 MG/ISO-OSM 100 ML IV PRN ×4 (04:08→20:44)
[2020-06-30] MEDS: MIDAZOLAM HCL 100 MG in DEXTROSE 5%-WATER 180 ML IV PRN ×2 (04:15→22:27)
[2020-06-30 05:47] LABS: BASOPHILS % (AUTO) 0.2 % (0.0-2.0); EOSINOPHILS % (AUTO) 0.4 % (1.0-6.0); HEMOGLOBIN 11.8 g/dL (12.0-16.0); LYMPHOCYTES # (AUTO) 0.8 K/uL (1.0-4.8); LYMPHOCYTES % (AUTO) 7.3 % (22.0-44.0); MEAN CORPUSCULAR HGB CONC 33.8 G/dL (31.0-37.0); MEAN CORPUSCULAR VOLUME 95 fL (80-100); MONOCYTES # (AUTO) 0.8 K/uL (0.1-1.0); MONOCYTES % (AUTO) 7.3 % (2.0-9.0); NEUTROPHILS # (AUTO) 9.6 K/uL (1.8-7.7); NEUTROPHILS % (AUTO) 84.8 % (40.0-70.0); PLATELET COUNT (AUTO) 358 K/uL (150-450); RED CELL DISTRIBUTION WIDTH 12.4 % (11.5-14.5)
[2020-06-30] MEDS: FentaNYL CITRATE PF 500 MCG in DEXTROSE 5%-WATER 90 ML IV PRN ×2 (07:41→18:04)
[2020-06-30] MEDS: DOCUSATE SODIUM 100 MG CAPSULE PO SCH ×2 (07:42→20:45)
[2020-06-30] MEDS: FAMOTIDINE 20 MG TABLET PO SCH ×2 (07:42→20:45)
[2020-06-30] MEDS: CISATRACURIUM BESYLATE 50 MG in DEXTROSE 5%-WATER 245 ML IV PRN ×3 (07:42→23:06)
[2020-06-30] MEDS: ZINC SULFATE 220 MG CAPSULE PO SCH ×2 (07:42→20:45)
[2020-06-30] MEDS: APIXABAN 5 MG TABLET PO SCH ×2 (07:43→20:45)
[2020-06-30] MEDS: DEXAMETHASONE 2 MG TABLET PO SCH (07:43)
[2020-06-30] MEDS: CHOLECALCIFEROL (VIT D3) 1,000 UNITS [25 MCG] TABLET PO SCH (07:43)
[2020-06-30] MEDS: ASCORBIC ACID 500 MG TABLET PO SCH ×2 (07:43→20:45)
[2020-06-30 08:00] VITALS: BP 120/69
[2020-06-30 08:43] LABS: GLUCOSE,POINT OF CARE 212 MG/DL (70-110)
[2020-06-30] MEDS: INSULIN GLARGINE,HUM.REC.ANLOG 100 UNITS/ML SQ SCH ×2 (08:49→20:45)
[2020-06-30 09:50] LABS: ANION GAP 9 mmol/L (8-16); CALCIUM, TOTAL 8.7 mg/dL (8.8-10.5); CARBON DIOXIDE 26 mmol/L (22-29); CHLORIDE 101 mmol/L (98-107); CREATININE 0.58 mg/dL (0.60-1.30); GLOMERULAR FILTR. RATE CALC > 60 mL/min (>60); GLUCOSE,RANDOM 236 mg/dL (70-110); PHOSPHORUS 2.3 mg/dL (2.5-4.9); POTASSIUM 4.7 mmol/L (3.5-5.1); SODIUM SERUM 136 mmol/L (136-145); UREA NITROGEN, BLOOD 17 mg/dL (7-18)
[2020-06-30 12:00] VITALS: BP 130/68
[2020-06-30 12:22] LABS: APPEARANCE,URINE CLEAR (CLEAR); BILIRUBIN,URINE NEGATIVE (NEGATIVE); GLUCOSE, URINE (UA) 500 mg/dL (NEGATIVE); KETONES,URINE NEGATIVE (NEGATIVE); LEUKOCYTE ESTERASE ,URINE NEGATIVE (NEGATIVE); NITRATE,URINE NEGATIVE (NEGATIVE); OCCULT BLOOD,URINE TRACE (NEGATIVE); PH,URINE 6.5 (5.0-8.0); PROTEIN,URINE NEGATIVE (NEGATIVE)
[2020-06-30 12:23] LABS: AMPHET/METH SCREEN,URINE NEGATIVE (NEGATIVE); BARBITURATE SCREEN, URINE NEGATIVE (NEGATIVE); BENZODIAZEPINES SCREEN,URINE POSITIVE (NEGATIVE); CANNABINOID SCREEN,URINE NEGATIVE (NEGATIVE); COCAINE SCREEN,URINE NEGATIVE (NEGATIVE); METHADONE SCREEN, URINE NEGATIVE (NEGATIVE); OPIATE SCREEN,URINE NEGATIVE (NEGATIVE)
[2020-06-30 12:24] LABS: PHENCYCLIDINE SCREEN,URINE NEGATIVE (NEGATIVE)
[2020-06-30 12:28] LABS: BACTERIA,URINE None Seen /HPF (None Seen); RBC,URINE 0-2 /HPF (0-2); WBC,URINE None Seen /HPF (0-5)
[2020-06-30] MEDS: CefTRIAXone 1 GM/DEXTROSE 50 ML IV SCH (13:57)
[2020-06-30 16:00] VITALS: BP 117/64
[2020-06-30 17:24] LABS: GLUCOSE,POINT OF CARE 249 MG/DL (70-110)
[2020-06-30 20:00] VITALS: BP 114/59
[2020-06-30 20:59] LABS: GLUCOSE,POINT OF CARE 270 MG/DL (70-110)
[2020-07-01] VITALS: BP 112/58
[2020-07-01 00:59] LABS: GLUCOSE,POINT OF CARE 263 MG/DL (70-110)
[2020-07-01 04:00] VITALS: BP 120/61
[2020-07-01] MEDS: FentaNYL CITRATE PF 500 MCG in DEXTROSE 5%-WATER 90 ML IV PRN ×3 (04:39→22:07)
[2020-07-01] MEDS: INSULIN LISPRO 100 UNITS/ML SQ PRN ×5 (05:04→23:50)
[2020-07-01] MEDS: PROPOFOL 1000 MG/ISO-OSM 100 ML IV PRN ×4 (05:06→21:34)
[2020-07-01 06:18] LABS: GLUCOSE,POINT OF CARE 236 MG/DL (70-110)
[2020-07-01 08:00] VITALS: BP 127/68
[2020-07-01] MEDS: CISATRACURIUM BESYLATE 50 MG in DEXTROSE 5%-WATER 245 ML IV PRN ×2 (08:01→17:04)
[2020-07-01] MEDS: ALBUMIN HUMAN 25%-25GM/100ML 100 ML IV SCH ×3 (08:20→23:49)
[2020-07-01] MEDS: AMINO ACIDS/PROTEIN HYDROLYS 30 ML TUBE PO SCH (08:20)
[2020-07-01] MEDS: MAGNESIUM HYDROXIDE SUSPENSION 30 ML UDCUP PO PRN (08:21)
[2020-07-01] MEDS: APIXABAN 5 MG TABLET PO SCH ×2 (08:21→21:24)
[2020-07-01] MEDS: FAMOTIDINE 20 MG TABLET PO SCH ×2 (08:21→21:24)
[2020-07-01] MEDS: CHOLECALCIFEROL (VIT D3) 1,000 UNITS [25 MCG] TABLET PO SCH (08:21)
[2020-07-01] MEDS: ASCORBIC ACID 500 MG TABLET PO SCH ×2 (08:21→21:24)
[2020-07-01] MEDS: DOCUSATE SODIUM 100 MG CAPSULE PO SCH ×2 (08:22→21:24)
[2020-07-01] MEDS: DEXAMETHASONE 2 MG TABLET PO SCH (08:22)
[2020-07-01] MEDS: ZINC SULFATE 220 MG CAPSULE PO SCH ×2 (08:22→21:24)
[2020-07-01] MEDS: INSULIN GLARGINE,HUM.REC.ANLOG 100 UNITS/ML SQ SCH ×2 (08:24→21:34)
[2020-07-01 12:00] VITALS: BP 127/62
[2020-07-01 12:08] LABS: GLUCOSE,POINT OF CARE 237 MG/DL (70-110)
[2020-07-01 12:08] LABS: GLUCOSE,POINT OF CARE 244 MG/DL (70-110)
[2020-07-01] MEDS: MIDAZOLAM HCL 100 MG in DEXTROSE 5%-WATER 180 ML IV PRN (12:13)
[2020-07-01 13:31] LABS: BASOPHILS % (AUTO) 0.3 % (0.0-2.0); EOSINOPHILS % (AUTO) 0.4 % (1.0-6.0); HEMATOCRIT 32.1 % (36-46); HEMOGLOBIN 11.1 g/dL (12.0-16.0); LYMPHOCYTES # (AUTO) 0.7 K/uL (1.0-4.8); LYMPHOCYTES % (AUTO) 7.4 % (22.0-44.0); MEAN CORPUSCULAR HEMOGLOBIN 32.7 pg (26.0-34.0); MEAN CORPUSCULAR HGB CONC 34.7 G/dL (31.0-37.0); MEAN CORPUSCULAR VOLUME 95 fL (80-100); MONOCYTES # (AUTO) 0.6 K/uL (0.1-1.0); MONOCYTES % (AUTO) 6.1 % (2.0-9.0); NEUTROPHILS # (AUTO) 8.3 K/uL (1.8-7.7); PLATELET COUNT (AUTO) 269 K/uL (150-450); RED CELL DISTRIBUTION WIDTH 12.5 % (11.5-14.5)
[2020-07-01 13:32] LABS: NEUTROPHILS % (AUTO) 85.8 % (40.0-70.0)
[2020-07-01 14:06] LABS: ANION GAP 7 mmol/L (8-16); CALCIUM, TOTAL 8.8 mg/dL (8.8-10.5); CARBON DIOXIDE 30 mmol/L (22-29); CHLORIDE 95 mmol/L (98-107); CREATININE 0.61 mg/dL (0.60-1.30); GLOMERULAR FILTR. RATE CALC > 60 mL/min (>60); GLUCOSE,RANDOM 255 mg/dL (70-110); POTASSIUM 4.4 mmol/L (3.5-5.1); SODIUM SERUM 132 mmol/L (136-145); UREA NITROGEN, BLOOD 26 mg/dL (7-18)
[2020-07-01] MEDS: CefTRIAXone 1 GM/DEXTROSE 50 ML IV SCH (14:23)
[2020-07-01 16:00] VITALS: BP 120/60
[2020-07-01 18:39] LABS: GLUCOSE,POINT OF CARE 317 MG/DL (70-110)
[2020-07-01 20:00] VITALS: BP 130/62
[2020-07-01 23:45] LABS: GLUCOSE,POINT OF CARE 266 MG/DL (70-110)
[2020-07-02] VITALS: BP 134/67
[2020-07-02] MEDS: CISATRACURIUM BESYLATE 50 MG in DEXTROSE 5%-WATER 245 ML IV PRN ×3 (01:40→20:33)
[2020-07-02] MEDS ORDERED: SODIUM CHLORIDE 0.9% 250 ML IV ONE (02:38)
[2020-07-02] MEDS: PROPOFOL 1000 MG/ISO-OSM 100 ML IV PRN ×3 (02:39→20:31)
[2020-07-02 04:00] VITALS: BP 111/53
[2020-07-02] MEDS: INSULIN LISPRO 100 UNITS/ML SQ PRN ×4 (04:53→17:52)
[2020-07-02 04:58] LABS: BASOPHILS % (AUTO) 0.1 % (0.0-2.0); EOSINOPHILS % (AUTO) 0.1 % (1.0-6.0); HEMATOCRIT 33.1 % (36-46); HEMOGLOBIN 11.3 g/dL (12.0-16.0); LYMPHOCYTES # (AUTO) 1.2 K/uL (1.0-4.8); LYMPHOCYTES % (AUTO) 13.2 % (22.0-44.0); MEAN CORPUSCULAR HEMOGLOBIN 32.4 pg (26.0-34.0); MEAN CORPUSCULAR HGB CONC 34.1 G/dL (31.0-37.0); MEAN CORPUSCULAR VOLUME 95 fL (80-100); MONOCYTES # (AUTO) 0.8 K/uL (0.1-1.0); MONOCYTES % (AUTO) 9.5 % (2.0-9.0); NEUTROPHILS # (AUTO) 6.7 K/uL (1.8-7.7); NEUTROPHILS % (AUTO) 77.1 % (40.0-70.0); PLATELET COUNT (AUTO) 267 K/uL (150-450); RED BLOOD CELL COUNT(AUTO) 3.49 MIL/uL (4.00-5.20); RED CELL DISTRIBUTION WIDTH 12.6 % (11.5-14.5)
[2020-07-02 05:28] LABS: ALANINE AMINOTRANSFERASE 13 U/L (12-78); ALBUMIN 4.1 g/dL (3.4-5.0); ALKALINE PHOSPHATASE 53 U/L (46-116); ANION GAP 12 mmol/L (8-16); ASPARTATE AMINOTRANSFERASE 7 U/L (15-37); BILIRUBIN,TOTAL 0.5 mg/dL (0.1-1.0); C-REACTIVE PROTEIN QUANT 1.72 mg/dL (0.00-0.30); CARBON DIOXIDE 29 mmol/L (22-29); CHLORIDE 96 mmol/L (98-107); CREATININE 0.64 mg/dL (0.60-1.30); FERRITIN 369 ng/mL (8-252); GLOMERULAR FILTR. RATE CALC > 60 mL/min (>60); GLUCOSE,RANDOM 244 mg/dL (70-110); SODIUM SERUM 137 mmol/L (136-145); TOTAL PROTEIN, SERUM 7.1 g/dL (6.4-8.2); UREA NITROGEN, BLOOD 24 mg/dL (7-18)
[2020-07-02 06:17] LABS: GLUCOSE,POINT OF CARE 228 MG/DL (70-110)
[2020-07-02 06:38] LABS: GLUCOSE,POINT OF CARE 277 MG/DL (70-110)
[2020-07-02 08:00] VITALS: BP 157/75
[2020-07-02] MEDS: FAMOTIDINE 20 MG TABLET PO SCH ×2 (08:04→20:30)
[2020-07-02] MEDS: DEXAMETHASONE 2 MG TABLET PO SCH (08:04)
[2020-07-02] MEDS: ALBUMIN HUMAN 25%-25GM/100ML 100 ML IV SCH ×2 (08:04→16:13)
[2020-07-02] MEDS: AMINO ACIDS/PROTEIN HYDROLYS 30 ML TUBE PO SCH (08:04)
[2020-07-02] MEDS: APIXABAN 5 MG TABLET PO SCH ×2 (08:04→20:30)
[2020-07-02] MEDS: DOCUSATE SODIUM 100 MG CAPSULE PO SCH ×2 (08:05→20:30)
[2020-07-02] MEDS: CHOLECALCIFEROL (VIT D3) 1,000 UNITS [25 MCG] TABLET PO SCH (08:05)
[2020-07-02] MEDS: HYDROCODONE/ACETAMINOPHEN 5-325 MG TABLET PO PRN (08:05)
[2020-07-02] MEDS: ASCORBIC ACID 500 MG TABLET PO SCH ×2 (08:05→20:30)
[2020-07-02] MEDS: ZINC SULFATE 220 MG CAPSULE PO SCH ×2 (08:05→20:30)
[2020-07-02] MEDS: INSULIN GLARGINE,HUM.REC.ANLOG 100 UNITS/ML SQ SCH ×2 (08:07→20:41)
[2020-07-02] MEDS: FentaNYL CITRATE PF 500 MCG in DEXTROSE 5%-WATER 90 ML IV PRN ×2 (08:32→14:29)
[2020-07-02 09:26] LABS: GLUCOSE,POINT OF CARE 184 MG/DL (70-110)
[2020-07-02 09:44] LABS: ABG A-A DIFF O2 309.9 mmHg (10-20.0); ABG BASE EXCESS 4.2 mmol/L (-2.0-3.0); ABG CARBOXYHEMOGLOBIN 0.2 % (0.0-1.5); ABG HCO3 27.8 mmol/L (22.0-26.0); ABG METHEMOGLOBIN 0.3 % (0.0-1.5); ABG OXYGEN CONTENT 16.1 mL/dL (15.0-23.0); ABG OXYGEN SATURATION 95.4 % (95.0-98.0); ABG OXYHEMOGLOBIN 94.9 % (94.0-100.0); ABG PCO2 41 mmHg (35-45); ABG PH 7.453 (7.35-7.450); PO2, ARTERIAL BG 73.6 mmHg (84.0-92.0); SOURCE, BLOOD GAS ARTERIAL; TEMPERATURE, FAHRENHEIT, BG 97.5 FAHREN (96.0-98.6)
[2020-07-02 09:47] LABS: O2 DEVICE,BLOOD GAS VENTILATOR (ROOM AIR); PEEP,BG 8 cm H2O; SITE, BLOOD GAS ARTERIAL LINE; VT, ABG 450 ml
[2020-07-02] MEDS: MIDAZOLAM HCL 100 MG in DEXTROSE 5%-WATER 180 ML IV PRN (11:49)
[2020-07-02 12:00] VITALS: BP 115/60
[2020-07-02 14:02] LABS: GLUCOSE,POINT OF CARE 229 MG/DL (70-110)
[2020-07-02] MEDS: CefTRIAXone 1 GM/DEXTROSE 50 ML IV SCH (14:29)
[2020-07-02 16:00] VITALS: BP 122/58
[2020-07-02] MEDS: LACTULOSE 20 GM/30 ML SOLUTION UDCUP PO PRN (19:02)
[2020-07-02 19:03] LABS: GLUCOSE,POINT OF CARE 293 MG/DL (70-110)
[2020-07-02 20:00] VITALS: BP 124/59
[2020-07-03] VITALS: BP 132/62
[2020-07-03] MEDS: FentaNYL CITRATE PF 500 MCG in DEXTROSE 5%-WATER 90 ML IV PRN ×3 (00:13→18:08)
[2020-07-03] MEDS: ALBUMIN HUMAN 25%-25GM/100ML 100 ML IV SCH ×4 (00:13→23:46)
[2020-07-03] MEDS: INSULIN LISPRO 100 UNITS/ML SQ PRN ×4 (00:15→16:02)
[2020-07-03 02:02] LABS: GLUCOSE,POINT OF CARE 221 MG/DL (70-110)
[2020-07-03 02:02] LABS: GLUCOSE,POINT OF CARE 264 MG/DL (70-110)
[2020-07-03] MEDS: CISATRACURIUM BESYLATE 50 MG in DEXTROSE 5%-WATER 245 ML IV PRN ×4 (03:07→21:51)
[2020-07-03 04:00] VITALS: BP 121/59
[2020-07-03] MEDS ORDERED: SODIUM CHLORIDE 0.9% 100 ML ONE (04:45)
[2020-07-03] MEDS: PROPOFOL 1000 MG/ISO-OSM 100 ML IV PRN ×4 (04:51→22:45)
[2020-07-03 04:54] LABS: GLUCOSE,POINT OF CARE 166 MG/DL (70-110)
[2020-07-03 06:00] LABS: BASOPHILS % (AUTO) 0.1 % (0.0-2.0); EOSINOPHILS % (AUTO) 0.5 % (1.0-6.0); HEMATOCRIT 32.9 % (36-46); HEMOGLOBIN 11.1 g/dL (12.0-16.0); LYMPHOCYTES # (AUTO) 1.7 K/uL (1.0-4.8); LYMPHOCYTES % (AUTO) 15.4 % (22.0-44.0); MEAN CORPUSCULAR HEMOGLOBIN 32.5 pg (26.0-34.0); MEAN CORPUSCULAR HGB CONC 33.7 G/dL (31.0-37.0); MEAN CORPUSCULAR VOLUME 96 fL (80-100); MONOCYTES # (AUTO) 0.9 K/uL (0.1-1.0); MONOCYTES % (AUTO) 8.5 % (2.0-9.0); NEUTROPHILS # (AUTO) 8.3 K/uL (1.8-7.7); NEUTROPHILS % (AUTO) 75.5 % (40.0-70.0); PLATELET COUNT (AUTO) 289 K/uL (150-450); RED BLOOD CELL COUNT(AUTO) 3.42 MIL/uL (4.00-5.20); RED CELL DISTRIBUTION WIDTH 12.5 % (11.5-14.5)
[2020-07-03 06:03] LABS: ANION GAP 4 mmol/L (8-16); CALCIUM, TOTAL 9.1 mg/dL (8.8-10.5); CARBON DIOXIDE 30 mmol/L (22-29); CHLORIDE 98 mmol/L (98-107); CREATININE 0.61 mg/dL (0.60-1.30); GLOMERULAR FILTR. RATE CALC > 60 mL/min (>60); GLUCOSE,RANDOM 174 mg/dL (70-110); POTASSIUM 3.8 mmol/L (3.5-5.1); SODIUM SERUM 132 mmol/L (136-145); UREA NITROGEN, BLOOD 23 mg/dL (7-18)
[2020-07-03 08:00] VITALS: BP 155/70
[2020-07-03] MEDS: APIXABAN 5 MG TABLET PO SCH ×2 (08:53→21:46)
[2020-07-03] MEDS: FAMOTIDINE 20 MG TABLET PO SCH ×2 (08:53→21:47)
[2020-07-03] MEDS: AMINO ACIDS/PROTEIN HYDROLYS 30 ML TUBE PO SCH (08:53)
[2020-07-03] MEDS: ZINC SULFATE 220 MG CAPSULE PO SCH ×2 (08:53→21:46)
[2020-07-03] MEDS: DOCUSATE SODIUM 100 MG CAPSULE PO SCH ×2 (08:53→21:47)
[2020-07-03] MEDS: CHOLECALCIFEROL (VIT D3) 1,000 UNITS [25 MCG] TABLET PO SCH (08:53)
[2020-07-03] MEDS: ASCORBIC ACID 500 MG TABLET PO SCH ×2 (08:53→21:47)
[2020-07-03] MEDS: DEXAMETHASONE 2 MG TABLET PO SCH (08:54)
[2020-07-03] MEDS: INSULIN GLARGINE,HUM.REC.ANLOG 100 UNITS/ML SQ SCH ×2 (08:59→21:58)
[2020-07-03] MEDS ORDERED: SODIUM PHOS/SODIUM BIPHOS 133 ML ENEMA PR PRN (09:00)
[2020-07-03] MEDS: LACTULOSE 20 GM/30 ML SOLUTION UDCUP PO PRN (09:32)
[2020-07-03 11:33] LABS: GLUCOSE,POINT OF CARE 103 MG/DL (70-110)
[2020-07-03 12:00] VITALS: BP 152/60
[2020-07-03 12:06] LABS: ORGANISM ID Not indicated.; S PNEUMO SOURCE Urine; STREP PNEUMONIAE AG URINE Negative (Negative); STREP.PNEUMO BODY FLUID CULT. Not indicated.
[2020-07-03 12:24] LABS: GLUCOSE,POINT OF CARE 166 MG/DL (70-110)
[2020-07-03] MEDS: MIDAZOLAM HCL 100 MG in DEXTROSE 5%-WATER 180 ML IV PRN (12:54)
[2020-07-03] MEDS: CefTRIAXone 1 GM/DEXTROSE 50 ML IV SCH (13:27)
[2020-07-03] MEDS: HYDROCODONE/ACETAMINOPHEN 5-325 MG TABLET PO PRN (13:28)
[2020-07-03 16:00] VITALS: BP 148/67
[2020-07-03 19:24] LABS: GLUCOSE,POINT OF CARE 308 MG/DL (70-110)
[2020-07-03 20:00] VITALS: BP 141/60
[2020-07-04] VITALS: BP 144/68
[2020-07-04] MEDS: FentaNYL CITRATE PF 500 MCG in DEXTROSE 5%-WATER 90 ML IV PRN ×2 (03:11→12:08)
[2020-07-04 04:00] VITALS: BP 163/76
[2020-07-04] MEDS: CISATRACURIUM BESYLATE 50 MG in DEXTROSE 5%-WATER 245 ML IV PRN ×4 (04:29→22:34)
[2020-07-04] MEDS ORDERED: SODIUM CHLORIDE 0.9% 500 ML IV ONE ×2 (04:30→14:47)
[2020-07-04] MEDS: PROPOFOL 1000 MG/ISO-OSM 100 ML IV PRN ×3 (04:44→15:48)
[2020-07-04 05:31] LABS: BASOPHILS % (AUTO) 0.1 % (0.0-2.0); EOSINOPHILS % (AUTO) 0.5 % (1.0-6.0); HEMATOCRIT 32.9 % (36-46); HEMOGLOBIN 11.4 g/dL (12.0-16.0); LYMPHOCYTES # (AUTO) 1.3 K/uL (1.0-4.8); LYMPHOCYTES % (AUTO) 12.3 % (22.0-44.0); MEAN CORPUSCULAR HEMOGLOBIN 33.1 pg (26.0-34.0); MEAN CORPUSCULAR HGB CONC 34.5 G/dL (31.0-37.0); MEAN CORPUSCULAR VOLUME 96 fL (80-100); MONOCYTES # (AUTO) 0.9 K/uL (0.1-1.0); MONOCYTES % (AUTO) 8.1 % (2.0-9.0); NEUTROPHILS # (AUTO) 8.4 K/uL (1.8-7.7); PLATELET COUNT (AUTO) 263 K/uL (150-450); RED BLOOD CELL COUNT(AUTO) 3.44 MIL/uL (4.00-5.20); RED CELL DISTRIBUTION WIDTH 12.5 % (11.5-14.5)
[2020-07-04 05:42] LABS: ANION GAP 9 mmol/L (8-16); CALCIUM, TOTAL 9.3 mg/dL (8.8-10.5); CARBON DIOXIDE 29 mmol/L (22-29); CHLORIDE 98 mmol/L (98-107); CREATININE 0.59 mg/dL (0.60-1.30); GLOMERULAR FILTR. RATE CALC > 60 mL/min (>60); GLUCOSE,RANDOM 201 mg/dL (70-110); POTASSIUM 3.7 mmol/L (3.5-5.1); SODIUM SERUM 136 mmol/L (136-145); UREA NITROGEN, BLOOD 28 mg/dL (7-18)
[2020-07-04] MEDS: INSULIN LISPRO 100 UNITS/ML SQ PRN ×4 (06:24→20:19)
[2020-07-04] MEDS: MIDAZOLAM HCL 100 MG in DEXTROSE 5%-WATER 180 ML IV PRN (07:29)
[2020-07-04] MEDS: ALBUMIN HUMAN 25%-25GM/100ML 100 ML IV SCH ×3 (07:30→23:52)
[2020-07-04] MEDS: AMINO ACIDS/PROTEIN HYDROLYS 30 ML TUBE PO SCH (07:30)
[2020-07-04] MEDS: DOCUSATE SODIUM 100 MG CAPSULE PO SCH ×2 (07:55→20:20)
[2020-07-04] MEDS: CHOLECALCIFEROL (VIT D3) 1,000 UNITS [25 MCG] TABLET PO SCH (07:56)
[2020-07-04] MEDS: ASCORBIC ACID 500 MG TABLET PO SCH ×2 (07:56→20:18)
[2020-07-04] MEDS: FAMOTIDINE 20 MG TABLET PO SCH ×2 (07:56→20:18)
[2020-07-04] MEDS: APIXABAN 5 MG TABLET PO SCH ×2 (07:56→20:18)
[2020-07-04] MEDS: ZINC SULFATE 220 MG CAPSULE PO SCH ×2 (07:56→20:18)
[2020-07-04] MEDS: DEXAMETHASONE 2 MG TABLET PO SCH (07:57)
[2020-07-04 08:00] VITALS: BP 144/67
[2020-07-04] MEDS: INSULIN GLARGINE,HUM.REC.ANLOG 100 UNITS/ML SQ SCH ×2 (08:00→20:19)
[2020-07-04 08:19] LABS: GLUCOSE,POINT OF CARE 186 MG/DL (70-110)
[2020-07-04 08:19] LABS: GLUCOSE,POINT OF CARE 240 MG/DL (70-110)
[2020-07-04 08:19] LABS: GLUCOSE,POINT OF CARE 250 MG/DL (70-110)
[2020-07-04 12:00] VITALS: BP 133/64
[2020-07-04 12:59] LABS: ABG A-A DIFF O2 300.9 mmHg (10-20.0); ABG BASE EXCESS -0.9 mmol/L (-2.0-3.0); ABG CARBOXYHEMOGLOBIN 0.6 % (0.0-1.5); ABG HCO3 23.9 mmol/L (22.0-26.0); ABG METHEMOGLOBIN 0.3 % (0.0-1.5); ABG OXYGEN CONTENT 16.5 mL/dL (15.0-23.0); ABG OXYGEN SATURATION 96.7 % (95.0-98.0); ABG OXYHEMOGLOBIN 95.8 % (94.0-100.0); ABG PCO2 38 mmHg (35-45); ABG PH 7.412 (7.35-7.450); ABG TOTAL HEMOGLOBIN 12.2 G/dL (12.0-18.0); SOURCE, BLOOD GAS ARTERIAL; TEMPERATURE, FAHRENHEIT, BG 98.6 FAHREN (96.0-98.6)
[2020-07-04 13:02] LABS: O2 DEVICE,BLOOD GAS VENTILATOR (ROOM AIR); SITE, BLOOD GAS ARTERIAL LINE; VT, ABG 450 ml
[2020-07-04 13:03] LABS: PEEP,BG 8 cm H2O
[2020-07-04] MEDS: CefTRIAXone 1 GM/DEXTROSE 50 ML IV SCH (13:55)
[2020-07-04 15:06] LABS: GLUCOSE,POINT OF CARE 199 MG/DL (70-110)
[2020-07-04 16:00] VITALS: BP 126/63
[2020-07-04 16:45] LABS: GLUCOSE,POINT OF CARE 269 MG/DL (70-110)
[2020-07-04 20:00] VITALS: BP 142/71
[2020-07-04 20:06] LABS: GLUCOSE,POINT OF CARE 265 MG/DL (70-110)
[2020-07-05] VITALS: BP 120/59
[2020-07-05] MEDS: FentaNYL CITRATE PF 500 MCG in DEXTROSE 5%-WATER 90 ML IV PRN ×4 (00:13→21:50)
[2020-07-05] MEDS: INSULIN LISPRO 100 UNITS/ML SQ PRN ×3 (00:37→17:30)
[2020-07-05] MEDS: MIDAZOLAM HCL 100 MG in DEXTROSE 5%-WATER 180 ML IV PRN ×2 (03:10→20:12)
[2020-07-05 04:00] VITALS: BP 149/69
[2020-07-05] MEDS: CISATRACURIUM BESYLATE 50 MG in DEXTROSE 5%-WATER 245 ML IV PRN ×2 (04:51→11:44)
[2020-07-05] MEDS: PROPOFOL 1000 MG/ISO-OSM 100 ML IV PRN ×3 (04:51→15:11)
[2020-07-05 05:00] LABS: GLUCOSE,POINT OF CARE 122 MG/DL (70-110)
[2020-07-05 05:00] LABS: GLUCOSE,POINT OF CARE 131 MG/DL (70-110)
[2020-07-05 05:10] LABS: BASOPHILS % (AUTO) 0.1 % (0.0-2.0); EOSINOPHILS % (AUTO) 0.6 % (1.0-6.0); HEMATOCRIT 32.9 % (36-46); LYMPHOCYTES # (AUTO) 1.8 K/uL (1.0-4.8); LYMPHOCYTES % (AUTO) 15.6 % (22.0-44.0); MEAN CORPUSCULAR HEMOGLOBIN 32.3 pg (26.0-34.0); MEAN CORPUSCULAR HGB CONC 33.5 G/dL (31.0-37.0); MEAN CORPUSCULAR VOLUME 96 fL (80-100); MONOCYTES # (AUTO) 0.9 K/uL (0.1-1.0); MONOCYTES % (AUTO) 7.9 % (2.0-9.0); NEUTROPHILS # (AUTO) 8.7 K/uL (1.8-7.7); NEUTROPHILS % (AUTO) 75.8 % (40.0-70.0); PLATELET COUNT (AUTO) 266 K/uL (150-450); RED BLOOD CELL COUNT(AUTO) 3.41 MIL/uL (4.00-5.20); RED CELL DISTRIBUTION WIDTH 12.4 % (11.5-14.5)
[2020-07-05 05:20] LABS: ANION GAP 9 mmol/L (8-16); CALCIUM, TOTAL 9.4 mg/dL (8.8-10.5); CARBON DIOXIDE 29 mmol/L (22-29); CHLORIDE 100 mmol/L (98-107); CREATININE 0.61 mg/dL (0.60-1.30); GLOMERULAR FILTR. RATE CALC > 60 mL/min (>60); GLUCOSE,RANDOM 137 mg/dL (70-110); POTASSIUM 3.5 mmol/L (3.5-5.1); SODIUM SERUM 138 mmol/L (136-145); UREA NITROGEN, BLOOD 30 mg/dL (7-18)
[2020-07-05] MEDS: DOCUSATE SODIUM 100 MG CAPSULE PO SCH ×2 (07:49→20:04)
[2020-07-05] MEDS: ALBUMIN HUMAN 25%-25GM/100ML 100 ML IV SCH ×3 (07:49→23:42)
[2020-07-05] MEDS: AMINO ACIDS/PROTEIN HYDROLYS 30 ML TUBE PO SCH (07:49)
[2020-07-05] MEDS: CHOLECALCIFEROL (VIT D3) 1,000 UNITS [25 MCG] TABLET PO SCH (07:50)
[2020-07-05] MEDS: DEXAMETHASONE 2 MG TABLET PO SCH (07:50)
[2020-07-05] MEDS: ASCORBIC ACID 500 MG TABLET PO SCH ×2 (07:50→20:04)
[2020-07-05] MEDS: ZINC SULFATE 220 MG CAPSULE PO SCH ×2 (07:50→20:04)
[2020-07-05] MEDS: FAMOTIDINE 20 MG TABLET PO SCH ×2 (07:50→20:04)
[2020-07-05] MEDS: APIXABAN 5 MG TABLET PO SCH ×2 (07:50→20:04)
[2020-07-05 08:00] VITALS: BP 112/56
[2020-07-05] MEDS: INSULIN GLARGINE,HUM.REC.ANLOG 100 UNITS/ML SQ SCH ×2 (10:25→20:06)
[2020-07-05 12:00] VITALS: BP 134/63
[2020-07-05 12:12] LABS: GLUCOSE,POINT OF CARE 209 MG/DL (70-110)
[2020-07-05] MEDS: CefTRIAXone 1 GM/DEXTROSE 50 ML IV SCH (13:21)
[2020-07-05 16:00] VITALS: BP 123/58
[2020-07-05 16:16] LABS: GLUCOSE,POINT OF CARE 210 MG/DL (70-110)
[2020-07-05 19:28] LABS: GLUCOSE,POINT OF CARE 213 MG/DL (70-110)
[2020-07-05 20:00] VITALS: BP 124/56
[2020-07-05] MEDS ORDERED: SODIUM CHLORIDE 0.9% 250 ML IV ONE (23:23)
[2020-07-05] MEDS ORDERED: SODIUM CHLORIDE 0.9% 500 ML IV ONE (23:23)
[2020-07-06] VITALS: BP 118/55
[2020-07-06] MEDS: INSULIN LISPRO 100 UNITS/ML SQ PRN ×4 (00:39→17:35)
[2020-07-06 01:18] LABS: GLUCOSE,POINT OF CARE 212 MG/DL (70-110)
[2020-07-06 01:18] LABS: GLUCOSE,POINT OF CARE 144 MG/DL (70-110)
[2020-07-06] MEDS: FentaNYL CITRATE PF 500 MCG in DEXTROSE 5%-WATER 90 ML IV PRN ×3 (02:39→20:01)
[2020-07-06] MEDS: PROPOFOL 1000 MG/ISO-OSM 100 ML IV PRN ×3 (03:43→20:00)
[2020-07-06 04:00] VITALS: BP 152/66
[2020-07-06 05:07] LABS: BASOPHILS % (AUTO) 0.1 % (0.0-2.0); EOSINOPHILS % (AUTO) 0.5 % (1.0-6.0); HEMATOCRIT 33.1 % (36-46); HEMOGLOBIN 11.1 g/dL (12.0-16.0); LYMPHOCYTES # (AUTO) 1.8 K/uL (1.0-4.8); LYMPHOCYTES % (AUTO) 15.2 % (22.0-44.0); MEAN CORPUSCULAR HEMOGLOBIN 32.3 pg (26.0-34.0); MEAN CORPUSCULAR HGB CONC 33.6 G/dL (31.0-37.0); MEAN CORPUSCULAR VOLUME 96 fL (80-100); MONOCYTES # (AUTO) 0.9 K/uL (0.1-1.0); MONOCYTES % (AUTO) 7.4 % (2.0-9.0); NEUTROPHILS # (AUTO) 8.9 K/uL (1.8-7.7); NEUTROPHILS % (AUTO) 76.8 % (40.0-70.0); PLATELET COUNT (AUTO) 254 K/uL (150-450); RED BLOOD CELL COUNT(AUTO) 3.44 MIL/uL (4.00-5.20); RED CELL DISTRIBUTION WIDTH 12.6 % (11.5-14.5)
[2020-07-06 05:20] LABS: ANION GAP 7 mmol/L (8-16); CALCIUM, TOTAL 9.3 mg/dL (8.8-10.5); CARBON DIOXIDE 28 mmol/L (22-29); CHLORIDE 101 mmol/L (98-107); CREATININE 0.56 mg/dL (0.60-1.30); GLOMERULAR FILTR. RATE CALC > 60 mL/min (>60); GLUCOSE,RANDOM 173 mg/dL (70-110); POTASSIUM 3.6 mmol/L (3.5-5.1); SODIUM SERUM 136 mmol/L (136-145); UREA NITROGEN, BLOOD 30 mg/dL (7-18)
[2020-07-06 06:39] LABS: GLUCOSE,POINT OF CARE 125 MG/DL (70-110)
[2020-07-06 08:00] VITALS: BP 130/59
[2020-07-06] MEDS: ALBUMIN HUMAN 25%-25GM/100ML 100 ML IV SCH ×3 (08:20→23:29)
[2020-07-06] MEDS: AMINO ACIDS/PROTEIN HYDROLYS 30 ML TUBE PO SCH (08:21)
[2020-07-06] MEDS: ZINC SULFATE 220 MG CAPSULE PO SCH ×2 (08:21→20:00)
[2020-07-06] MEDS: APIXABAN 5 MG TABLET PO SCH ×2 (08:22→20:00)
[2020-07-06] MEDS: CHOLECALCIFEROL (VIT D3) 1,000 UNITS [25 MCG] TABLET PO SCH (08:22)
[2020-07-06] MEDS: DEXAMETHASONE 2 MG TABLET PO SCH (08:22)
[2020-07-06] MEDS: ASCORBIC ACID 500 MG TABLET PO SCH ×2 (08:22→20:00)
[2020-07-06] MEDS: DOCUSATE SODIUM 100 MG CAPSULE PO SCH ×2 (08:22→20:00)
[2020-07-06] MEDS: FAMOTIDINE 20 MG TABLET PO SCH ×2 (08:22→20:00)
[2020-07-06] MEDS: INSULIN GLARGINE,HUM.REC.ANLOG 100 UNITS/ML SQ SCH ×2 (08:49→21:11)
[2020-07-06] MEDS: DEXMEDETOMIDINE HCL 200 MCG in SODIUM CHLORIDE 0.9% 48 ML IV PRN ×2 (10:24→13:14)
[2020-07-06 11:21] LABS: ABG A-A DIFF O2 340.7 mmHg (10-20.0); ABG CARBOXYHEMOGLOBIN 0.2 % (0.0-1.5); ABG HCO3 27.1 mmol/L (22.0-26.0); ABG METHEMOGLOBIN 0.3 % (0.0-1.5); ABG OXYGEN CONTENT 14.6 mL/dL (15.0-23.0); ABG OXYGEN SATURATION 96.3 % (95.0-98.0); ABG OXYHEMOGLOBIN 95.8 % (94.0-100.0); ABG PCO2 36 mmHg (35-45); ABG PH 7.483 (7.35-7.450); ABG TOTAL HEMOGLOBIN 10.8 G/dL (12.0-18.0); O2 DEVICE,BLOOD GAS VENTILATOR (ROOM AIR); PEEP,BG 5 cm H2O; PO2, ARTERIAL BG 83.1 mmHg (84.0-92.0); SITE, BLOOD GAS ARTERIAL LINE; SOURCE, BLOOD GAS ARTERIAL; TEMPERATURE, FAHRENHEIT, BG 99.2 FAHREN (96.0-98.6); VT, ABG 450 ml
[2020-07-06 12:00] VITALS: BP 118/57
[2020-07-06] MEDS: CefTRIAXone 1 GM/DEXTROSE 50 ML IV SCH (14:14)
[2020-07-06 16:15] VITALS: BP 150/64
[2020-07-06 19:35] LABS: GLUCOSE,POINT OF CARE 127 MG/DL (70-110)
[2020-07-06 19:35] LABS: GLUCOSE,POINT OF CARE 238 MG/DL (70-110)
[2020-07-06 19:35] LABS: GLUCOSE,POINT OF CARE 146 MG/DL (70-110)
[2020-07-06 20:00] VITALS: BP 121/55
[2020-07-06] MEDS ORDERED: SODIUM CHLORIDE 0.9% 250 ML IV ONE (23:00)
[2020-07-06] MEDS ORDERED: SODIUM CHLORIDE 0.9% 500 ML IV ONE (23:01)
[2020-07-06 23:37] LABS: GLUCOSE,POINT OF CARE 213 MG/DL (70-110)
[2020-07-07] VITALS: BP 121/53
[2020-07-07] MEDS: FentaNYL CITRATE PF 500 MCG in DEXTROSE 5%-WATER 90 ML IV PRN ×4 (00:37→20:58)
[2020-07-07] MEDS: INSULIN LISPRO 100 UNITS/ML SQ PRN ×4 (00:45→21:49)
[2020-07-07] MEDS: MIDAZOLAM HCL 100 MG in DEXTROSE 5%-WATER 180 ML IV PRN (02:09)
[2020-07-07] MEDS: PROPOFOL 1000 MG/ISO-OSM 100 ML IV PRN ×4 (02:38→18:41)
[2020-07-07 04:00] VITALS: BP 138/58
[2020-07-07 04:03] LABS: GLUCOSE,POINT OF CARE 160 MG/DL (70-110)
[2020-07-07] MEDS: ACETAMINOPHEN 325 MG TABLET PO PRN (04:38)
[2020-07-07 05:10] LABS: BASOPHILS % (AUTO) 0.1 % (0.0-2.0); EOSINOPHILS % (AUTO) 0.3 % (1.0-6.0); HEMOGLOBIN 10.9 g/dL (12.0-16.0); LYMPHOCYTES # (AUTO) 1.2 K/uL (1.0-4.8); LYMPHOCYTES % (AUTO) 8.5 % (22.0-44.0); MEAN CORPUSCULAR HEMOGLOBIN 33.1 pg (26.0-34.0); MEAN CORPUSCULAR VOLUME 97 fL (80-100); MONOCYTES # (AUTO) 1.2 K/uL (0.1-1.0); MONOCYTES % (AUTO) 8.6 % (2.0-9.0); NEUTROPHILS # (AUTO) 11.9 K/uL (1.8-7.7); NEUTROPHILS % (AUTO) 82.5 % (40.0-70.0); PLATELET COUNT (AUTO) 233 K/uL (150-450); RED CELL DISTRIBUTION WIDTH 12.6 % (11.5-14.5)
[2020-07-07 05:17] LABS: ANION GAP 9 mmol/L (8-16); CALCIUM, TOTAL 8.9 mg/dL (8.8-10.5); CARBON DIOXIDE 28 mmol/L (22-29); CHLORIDE 102 mmol/L (98-107); GLOMERULAR FILTR. RATE CALC > 60 mL/min (>60); GLUCOSE,RANDOM 163 mg/dL (70-110); POTASSIUM 3.5 mmol/L (3.5-5.1); SODIUM SERUM 139 mmol/L (136-145); UREA NITROGEN, BLOOD 40 mg/dL (7-18)
[2020-07-07 08:00] VITALS: BP 136/65
[2020-07-07 08:03] LABS: GLUCOSE,POINT OF CARE 126 MG/DL (70-110)
[2020-07-07] MEDS: FAMOTIDINE 20 MG TABLET PO SCH ×2 (09:22→21:45)
[2020-07-07] MEDS: APIXABAN 5 MG TABLET PO SCH ×2 (09:22→21:45)
[2020-07-07] MEDS: ZINC SULFATE 220 MG CAPSULE PO SCH ×2 (09:22→21:45)
[2020-07-07] MEDS: ASCORBIC ACID 500 MG TABLET PO SCH ×2 (09:22→21:45)
[2020-07-07] MEDS: CHOLECALCIFEROL (VIT D3) 1,000 UNITS [25 MCG] TABLET PO SCH (09:23)
[2020-07-07] MEDS: ALBUMIN HUMAN 25%-25GM/100ML 100 ML IV SCH ×2 (09:23→15:45)
[2020-07-07] MEDS: DEXMEDETOMIDINE HCL 200 MCG in SODIUM CHLORIDE 0.9% 48 ML IV PRN (09:24)
[2020-07-07] MEDS: DOCUSATE SODIUM 100 MG CAPSULE PO SCH ×2 (09:31→21:45)
[2020-07-07] MEDS: DEXAMETHASONE 2 MG TABLET PO SCH (09:31)
[2020-07-07] MEDS: AMINO ACIDS/PROTEIN HYDROLYS 30 ML TUBE PO SCH (09:32)
[2020-07-07] MEDS: INSULIN GLARGINE,HUM.REC.ANLOG 100 UNITS/ML SQ SCH ×2 (09:32→21:49)
[2020-07-07 12:00] VITALS: BP 125/61
[2020-07-07] MEDS: LEVOFLOXACIN 750 MG/D5% WATER 150 ML IV SCH (13:58)
[2020-07-07] MEDS ORDERED: SODIUM CHLORIDE 0.9% 250 ML IV ONE ×2 (13:59→20:56)
[2020-07-07 15:25] LABS: APPEARANCE,URINE CLEAR (CLEAR); BILIRUBIN,URINE NEGATIVE (NEGATIVE); GLUCOSE, URINE (UA) NEGATIVE (NEGATIVE); KETONES,URINE NEGATIVE (NEGATIVE); LEUKOCYTE ESTERASE ,URINE NEGATIVE (NEGATIVE); NITRATE,URINE NEGATIVE (NEGATIVE); OCCULT BLOOD,URINE SMALL (NEGATIVE); PH,URINE 5.5 (5.0-8.0); PROTEIN,URINE POS 1+ (NEGATIVE)
[2020-07-07 16:00] VITALS: BP 139/65
[2020-07-07 16:23] LABS: YEAST,URINE Moderate /HPF (None Seen)
[2020-07-07 16:24] LABS: BACTERIA,URINE Rare /HPF (None Seen); SQUAMOUS EPITHELIAL CELL,UR Rare /LPF (None Seen)
[2020-07-07 17:11] LABS: GLUCOSE,POINT OF CARE 192 MG/DL (70-110)
[2020-07-07 17:40] LABS: GLUCOSE,POINT OF CARE 265 MG/DL (70-110)
[2020-07-07] MEDS: CISATRACURIUM BESYLATE 50 MG in DEXTROSE 5%-WATER 245 ML IV PRN (18:38)
[2020-07-07 20:00] VITALS: BP 135/65
[2020-07-07] MEDS ORDERED: SODIUM CHLORIDE 0.9% 500 ML IV ONE (20:56)
[2020-07-08] VITALS: BP 146/68
[2020-07-08] MEDS: ALBUMIN HUMAN 25%-25GM/100ML 100 ML IV SCH ×4 (00:23→23:20)
[2020-07-08] MEDS: PROPOFOL 1000 MG/ISO-OSM 100 ML IV PRN ×7 (00:43→21:42)
[2020-07-08] MEDS: MIDAZOLAM HCL 100 MG in DEXTROSE 5%-WATER 180 ML IV PRN ×2 (00:44→22:43)
[2020-07-08] MEDS: INSULIN LISPRO 100 UNITS/ML SQ PRN ×5 (00:45→21:52)
[2020-07-08 00:52] LABS: GLUCOSE,POINT OF CARE 212 MG/DL (70-110)
[2020-07-08] MEDS: FentaNYL CITRATE PF 500 MCG in DEXTROSE 5%-WATER 90 ML IV PRN ×4 (02:15→20:54)
[2020-07-08 03:42] LABS: GLUCOSE,POINT OF CARE 196 MG/DL (70-110)
[2020-07-08 04:00] VITALS: BP 136/57
[2020-07-08 05:05] LABS: GLUCOSE,POINT OF CARE 268 MG/DL (70-110)
[2020-07-08 05:07] LABS: BASOPHILS % (AUTO) 0.1 % (0.0-2.0); EOSINOPHILS % (AUTO) 0.3 % (1.0-6.0); HEMOGLOBIN 10.4 g/dL (12.0-16.0); LYMPHOCYTES # (AUTO) 0.9 K/uL (1.0-4.8); LYMPHOCYTES % (AUTO) 9.2 % (22.0-44.0); MEAN CORPUSCULAR HEMOGLOBIN 33.6 pg (26.0-34.0); MEAN CORPUSCULAR HGB CONC 34.5 G/dL (31.0-37.0); MEAN CORPUSCULAR VOLUME 97 fL (80-100); MONOCYTES # (AUTO) 0.8 K/uL (0.1-1.0); MONOCYTES % (AUTO) 7.9 % (2.0-9.0); NEUTROPHILS # (AUTO) 8.1 K/uL (1.8-7.7); NEUTROPHILS % (AUTO) 82.5 % (40.0-70.0); PLATELET COUNT (AUTO) 177 K/uL (150-450); RED BLOOD CELL COUNT(AUTO) 3.08 MIL/uL (4.00-5.20); RED CELL DISTRIBUTION WIDTH 12.5 % (11.5-14.5)
[2020-07-08 05:23] LABS: ANION GAP 10 mmol/L (8-16); CALCIUM, TOTAL 8.6 mg/dL (8.8-10.5); CARBON DIOXIDE 28 mmol/L (22-29); CHLORIDE 100 mmol/L (98-107); CREATININE 0.72 mg/dL (0.60-1.30); GLOMERULAR FILTR. RATE CALC > 60 mL/min (>60); GLUCOSE,RANDOM 291 mg/dL (70-110); POTASSIUM 4.2 mmol/L (3.5-5.1); SODIUM SERUM 138 mmol/L (136-145); UREA NITROGEN, BLOOD 38 mg/dL (7-18)
[2020-07-08 08:00] VITALS: BP 109/51
[2020-07-08] MEDS: FAMOTIDINE 20 MG TABLET PO SCH ×2 (08:57→20:53)
[2020-07-08] MEDS: ASCORBIC ACID 500 MG TABLET PO SCH ×2 (08:57→20:53)
[2020-07-08] MEDS: ZINC SULFATE 220 MG CAPSULE PO SCH ×2 (08:57→20:53)
[2020-07-08] MEDS: APIXABAN 5 MG TABLET PO SCH ×2 (08:57→20:53)
[2020-07-08] MEDS: CHOLECALCIFEROL (VIT D3) 1,000 UNITS [25 MCG] TABLET PO SCH (08:57)
[2020-07-08] MEDS: DEXAMETHASONE 2 MG TABLET PO SCH (08:59)
[2020-07-08] MEDS: AMINO ACIDS/PROTEIN HYDROLYS 30 ML TUBE PO SCH (08:59)
[2020-07-08] MEDS: DOCUSATE SODIUM 100 MG CAPSULE PO SCH ×2 (08:59→20:53)
[2020-07-08] MEDS: INSULIN GLARGINE,HUM.REC.ANLOG 100 UNITS/ML SQ SCH ×2 (10:07→21:51)
[2020-07-08 12:00] VITALS: BP 131/61
[2020-07-08] MEDS: LEVOFLOXACIN 750 MG/D5% WATER 150 ML IV SCH (13:53)
[2020-07-08] MEDS: OxyCODONE HCL 5 MG IR TABLET GT SCH ×2 (15:29→23:20)
[2020-07-08] MEDS: DIAZEPAM 5 MG TABLET GT SCH ×2 (15:29→23:20)
[2020-07-08 15:52] LABS: GLUCOSE,POINT OF CARE 262 MG/DL (70-110)
[2020-07-08 16:00] VITALS: BP 140/66
[2020-07-08] MEDS ORDERED: SODIUM CHLORIDE 0.9% 250 ML IV ONE (18:10)
[2020-07-08 20:00] VITALS: BP 130/60
[2020-07-08] MEDS ORDERED: SODIUM CHLORIDE 0.9% 500 ML IV ONE (20:48)
[2020-07-09] VITALS: BP 144/66
[2020-07-09] MEDS: INSULIN LISPRO 100 UNITS/ML SQ PRN ×5 (00:29→21:20)
[2020-07-09] MEDS: PROPOFOL 1000 MG/ISO-OSM 100 ML IV PRN ×5 (01:15→23:50)
[2020-07-09 02:29] LABS: GLUCOSE,POINT OF CARE 256 MG/DL (70-110)
[2020-07-09 02:29] LABS: GLUCOSE,POINT OF CARE 171 MG/DL (70-110)
[2020-07-09 02:29] LABS: GLUCOSE,POINT OF CARE 225 MG/DL (70-110)
[2020-07-09] MEDS: FentaNYL CITRATE PF 500 MCG in DEXTROSE 5%-WATER 90 ML IV PRN ×2 (03:45→15:27)
[2020-07-09 04:00] VITALS: BP 140/61
[2020-07-09 05:32] LABS: GLUCOSE,POINT OF CARE 145 MG/DL (70-110)
[2020-07-09 05:42] LABS: ALANINE AMINOTRANSFERASE 25 U/L (12-78); ALBUMIN 4.8 g/dL (3.4-5.0); ALKALINE PHOSPHATASE 47 U/L (46-116); ANION GAP 6 mmol/L (8-16); ASPARTATE AMINOTRANSFERASE 19 U/L (15-37); BILIRUBIN,TOTAL 0.7 mg/dL (0.1-1.0); CALCIUM, TOTAL 8.6 mg/dL (8.8-10.5); CARBON DIOXIDE 30 mmol/L (22-29); CHLORIDE 102 mmol/L (98-107); CREATININE 0.51 mg/dL (0.60-1.30); GLOMERULAR FILTR. RATE CALC > 60 mL/min (>60); GLUCOSE,RANDOM 151 mg/dL (70-110); POTASSIUM 3.7 mmol/L (3.5-5.1); SODIUM SERUM 138 mmol/L (136-145); TOTAL PROTEIN, SERUM 6.8 g/dL (6.4-8.2); UREA NITROGEN, BLOOD 34 mg/dL (7-18)
[2020-07-09 08:00] VITALS: BP 122/58
[2020-07-09] MEDS ORDERED: SODIUM CHLORIDE 0.9% 250 ML IV ONE ×2 (08:41→21:09)
[2020-07-09] MEDS: FAMOTIDINE 20 MG TABLET PO SCH ×2 (08:45→20:27)
[2020-07-09] MEDS: DEXAMETHASONE 2 MG TABLET PO SCH (08:45)
[2020-07-09] MEDS: OxyCODONE HCL 5 MG IR TABLET GT SCH ×2 (08:45→15:11)
[2020-07-09] MEDS: DOCUSATE SODIUM 100 MG CAPSULE PO SCH ×2 (08:45→20:27)
[2020-07-09] MEDS: AMINO ACIDS/PROTEIN HYDROLYS 30 ML TUBE PO SCH (08:45)
[2020-07-09] MEDS: ALBUMIN HUMAN 25%-25GM/100ML 100 ML IV SCH ×2 (08:45→15:11)
[2020-07-09] MEDS: ZINC SULFATE 220 MG CAPSULE PO SCH ×2 (08:45→20:27)
[2020-07-09] MEDS: APIXABAN 5 MG TABLET PO SCH ×2 (08:45→20:27)
[2020-07-09] MEDS: CHOLECALCIFEROL (VIT D3) 1,000 UNITS [25 MCG] TABLET PO SCH (08:45)
[2020-07-09] MEDS: DIAZEPAM 5 MG TABLET GT SCH ×3 (08:45→23:49)
[2020-07-09] MEDS: ASCORBIC ACID 500 MG TABLET PO SCH ×2 (08:45→20:28)
[2020-07-09] MEDS: INSULIN GLARGINE,HUM.REC.ANLOG 100 UNITS/ML SQ SCH ×2 (10:50→21:20)
[2020-07-09 12:00] VITALS: BP 162/73
[2020-07-09] MEDS: LEVOFLOXACIN 750 MG/D5% WATER 150 ML IV SCH (13:02)
[2020-07-09 13:35] LABS: GLUCOSE,POINT OF CARE 202 MG/DL (70-110)
[2020-07-09 15:33] LABS: ABG A-A DIFF O2 261.4 mmHg (10-20.0); ABG BASE EXCESS 3.3 mmol/L (-2.0-3.0); ABG CARBOXYHEMOGLOBIN 0.5 % (0.0-1.5); ABG HCO3 27.3 mmol/L (22.0-26.0); ABG METHEMOGLOBIN 0.3 % (0.0-1.5); ABG OXYGEN SATURATION 96.6 % (95.0-98.0); ABG OXYHEMOGLOBIN 95.8 % (94.0-100.0); ABG PCO2 40 mmHg (35-45); ABG PH 7.456 (7.35-7.450); ABG TOTAL HEMOGLOBIN 10.3 G/dL (12.0-18.0); PO2, ARTERIAL BG 85.8 mmHg (84.0-92.0); SITE, BLOOD GAS ARTERIAL LINE; SOURCE, BLOOD GAS ARTERIAL; TEMPERATURE, FAHRENHEIT, BG 99.9 FAHREN (96.0-98.6)
[2020-07-09 15:34] LABS: O2 DEVICE,BLOOD GAS VENTILATOR (ROOM AIR); PEEP,BG 8 cm H2O; VT, ABG 450 ml
[2020-07-09 15:52] LABS: COVID AG,FIA SOURCE NASOPHARYNGEAL
[2020-07-09 16:00] VITALS: BP 131/63
[2020-07-09 16:21] LABS: GLUCOSE,POINT OF CARE 196 MG/DL (70-110)
[2020-07-09 18:45] LABS: GLUCOSE,POINT OF CARE 259 MG/DL (70-110)
[2020-07-09 20:00] VITALS: BP 162/71
[2020-07-09 23:58] LABS: GLUCOSE,POINT OF CARE 163 MG/DL (70-110)
[2020-07-10] VITALS: BP 126/62
[2020-07-10 00:38] LABS: GLUCOSE,POINT OF CARE 129 MG/DL (70-110)
[2020-07-10] MEDS: OxyCODONE HCL 5 MG IR TABLET GT SCH ×3 (00:57→16:42)
[2020-07-10] MEDS: INSULIN LISPRO 100 UNITS/ML SQ PRN ×5 (00:59→20:47)
[2020-07-10] MEDS: PROPOFOL 1000 MG/ISO-OSM 100 ML IV PRN ×4 (03:46→20:51)
[2020-07-10 04:00] VITALS: BP 127/63
[2020-07-10 05:48] LABS: ANION GAP 4 mmol/L (8-16); CALCIUM, TOTAL 9.1 mg/dL (8.8-10.5); CARBON DIOXIDE 30 mmol/L (22-29); CHLORIDE 101 mmol/L (98-107); CREATININE 0.66 mg/dL (0.60-1.30); GLOMERULAR FILTR. RATE CALC > 60 mL/min (>60); GLUCOSE,RANDOM 155 mg/dL (70-110); POTASSIUM 3.6 mmol/L (3.5-5.1); SODIUM SERUM 135 mmol/L (136-145); UREA NITROGEN, BLOOD 38 mg/dL (7-18)
[2020-07-10] MEDS: ZINC SULFATE 220 MG CAPSULE PO SCH ×2 (07:37→21:05)
[2020-07-10] MEDS: DIAZEPAM 5 MG TABLET GT SCH ×2 (07:37→16:42)
[2020-07-10] MEDS: DEXAMETHASONE 2 MG TABLET PO SCH (07:37)
[2020-07-10] MEDS: APIXABAN 5 MG TABLET PO SCH ×2 (07:37→21:05)
[2020-07-10] MEDS: ASCORBIC ACID 500 MG TABLET PO SCH ×2 (07:37→21:06)
[2020-07-10] MEDS: FAMOTIDINE 20 MG TABLET PO SCH ×2 (07:37→21:05)
[2020-07-10] MEDS: DOCUSATE SODIUM 100 MG CAPSULE PO SCH ×2 (07:37→21:06)
[2020-07-10] MEDS: AMINO ACIDS/PROTEIN HYDROLYS 30 ML TUBE PO SCH (07:38)
[2020-07-10] MEDS: CHOLECALCIFEROL (VIT D3) 1,000 UNITS [25 MCG] TABLET PO SCH (07:38)
[2020-07-10] MEDS: INSULIN GLARGINE,HUM.REC.ANLOG 100 UNITS/ML SQ SCH ×2 (07:57→20:47)
[2020-07-10 08:00] VITALS: BP 137/75
[2020-07-10] MEDS: ACETAMINOPHEN 325 MG TABLET PO PRN (11:10)
[2020-07-10] MEDS: LEVOFLOXACIN 750 MG/D5% WATER 150 ML IV SCH (11:47)
[2020-07-10 12:00] VITALS: BP 122/68
[2020-07-10] MEDS: DEXMEDETOMIDINE HCL 200 MCG in SODIUM CHLORIDE 0.9% 48 ML IV PRN (12:36)
[2020-07-10 15:19] LABS: ABG A-A DIFF O2 217.7 mmHg (10-20.0); ABG BASE EXCESS 3.6 mmol/L (-2.0-3.0); ABG CARBOXYHEMOGLOBIN 0.6 % (0.0-1.5); ABG HCO3 27.3 mmol/L (22.0-26.0); ABG METHEMOGLOBIN 0.3 % (0.0-1.5); ABG OXYGEN CONTENT 15.3 mL/dL (15.0-23.0); ABG OXYGEN SATURATION 90.7 % (95.0-98.0); ABG OXYHEMOGLOBIN 89.9 % (94.0-100.0); ABG PCO2 40 mmHg (35-45); ABG PH 7.459 (7.35-7.450); ABG TOTAL HEMOGLOBIN 12.1 G/dL (12.0-18.0); PO2, ARTERIAL BG 58.2 mmHg (84.0-92.0); SITE, BLOOD GAS RT RADIAL; SOURCE, BLOOD GAS ARTERIAL; TEMPERATURE, FAHRENHEIT, BG 98.6 FAHREN (96.0-98.6)
[2020-07-10 15:20] LABS: CPAP, BG 5 cm H2O; O2 DEVICE,BLOOD GAS VENTILATOR (ROOM AIR); PEEP,BG 5 cm H2O; PRESSURE SUPPORT, BG 8 cm H2O; SPONTANEOUS VT, BG 436 ml; VENT MODE, BG SPONTANEOUS (ROOM AIR)
[2020-07-10 16:00] VITALS: BP 109/66
[2020-07-10 16:53] LABS: GLUCOSE,POINT OF CARE 122 MG/DL (70-110)
[2020-07-10 16:53] LABS: GLUCOSE,POINT OF CARE 241 MG/DL (70-110)
[2020-07-10 16:54] LABS: GLUCOSE,POINT OF CARE 137 MG/DL (70-110)
[2020-07-10] MEDS ORDERED: POTASSIUM CHLORIDE 10% 40 MEQ/30 ML LIQUID UDCUP NG ONE (18:00)
[2020-07-10] MEDS ORDERED: FUROSEMIDE 20 MG/2 ML VIAL IVP ONE (18:00)
[2020-07-10 20:00] VITALS: BP 84/54
[2020-07-10] MEDS ORDERED: SODIUM CHLORIDE 0.9% 250 ML IV ONE (20:10)
[2020-07-10 20:55] LABS: GLUCOSE,POINT OF CARE 298 MG/DL (70-110)
[2020-07-11] VITALS: BP 115/62
[2020-07-11] MEDS: DIAZEPAM 5 MG TABLET GT SCH (00:12)
[2020-07-11] MEDS: OxyCODONE HCL 5 MG IR TABLET GT SCH (00:12)
[2020-07-11] MEDS: INSULIN LISPRO 100 UNITS/ML SQ PRN ×4 (00:29→17:35)
[2020-07-11] MEDS: PROPOFOL 1000 MG/ISO-OSM 100 ML IV PRN ×5 (00:58→22:15)
[2020-07-11 04:00] VITALS: BP 108/66
[2020-07-11 05:06] LABS: BASOPHILS % (AUTO) 0.3 % (0.0-2.0); EOSINOPHILS % (AUTO) 1.7 % (1.0-6.0); HEMATOCRIT 32.6 % (36-46); HEMOGLOBIN 10.8 g/dL (12.0-16.0); LYMPHOCYTES # (AUTO) 2.6 K/uL (1.0-4.8); LYMPHOCYTES % (AUTO) 23.1 % (22.0-44.0); MEAN CORPUSCULAR HEMOGLOBIN 32.5 pg (26.0-34.0); MEAN CORPUSCULAR VOLUME 98 fL (80-100); MONOCYTES % (AUTO) 8.8 % (2.0-9.0); NEUTROPHILS # (AUTO) 7.5 K/uL (1.8-7.7); NEUTROPHILS % (AUTO) 66.1 % (40.0-70.0); PLATELET COUNT (AUTO) 208 K/uL (150-450); RED BLOOD CELL COUNT(AUTO) 3.31 MIL/uL (4.00-5.20); RED CELL DISTRIBUTION WIDTH 13.6 % (11.5-14.5)
[2020-07-11 05:26] LABS: ANION GAP 6 mmol/L (8-16); CALCIUM, TOTAL 9.2 mg/dL (8.8-10.5); CARBON DIOXIDE 29 mmol/L (22-29); CHLORIDE 103 mmol/L (98-107); CREATININE 0.64 mg/dL (0.60-1.30); GLOMERULAR FILTR. RATE CALC > 60 mL/min (>60); GLUCOSE,RANDOM 200 mg/dL (70-110); POTASSIUM 3.6 mmol/L (3.5-5.1); SODIUM SERUM 138 mmol/L (136-145); UREA NITROGEN, BLOOD 43 mg/dL (7-18)
[2020-07-11 08:00] VITALS: BP 105/63
[2020-07-11] MEDS: AMINO ACIDS/PROTEIN HYDROLYS 30 ML TUBE PO SCH (08:37)
[2020-07-11 08:38] LABS: ABG A-A DIFF O2 224.9 mmHg (10-20.0); ABG BASE EXCESS 3.5 mmol/L (-2.0-3.0); ABG CARBOXYHEMOGLOBIN 0.5 % (0.0-1.5); ABG HCO3 27.4 mmol/L (22.0-26.0); ABG METHEMOGLOBIN 0.3 % (0.0-1.5); ABG OXYGEN CONTENT 13.9 mL/dL (15.0-23.0); ABG OXYGEN SATURATION 87.7 % (95.0-98.0); ABG PCO2 38 mmHg (35-45); ABG PH 7.472 (7.35-7.450); ABG TOTAL HEMOGLOBIN 11.4 G/dL (12.0-18.0); PO2, ARTERIAL BG 52.3 mmHg (84.0-92.0); SOURCE, BLOOD GAS ARTERIAL; TEMPERATURE, FAHRENHEIT, BG 99.4 FAHREN (96.0-98.6)
[2020-07-11] MEDS: ASCORBIC ACID 500 MG TABLET PO SCH ×2 (08:38→20:01)
[2020-07-11] MEDS: FAMOTIDINE 20 MG TABLET PO SCH ×2 (08:38→20:01)
[2020-07-11] MEDS: DEXAMETHASONE 2 MG TABLET PO SCH (08:38)
[2020-07-11] MEDS: DOCUSATE SODIUM 100 MG CAPSULE PO SCH ×2 (08:38→20:01)
[2020-07-11] MEDS: CHOLECALCIFEROL (VIT D3) 1,000 UNITS [25 MCG] TABLET PO SCH (08:38)
[2020-07-11 08:39] LABS: SITE, BLOOD GAS RT RADIAL
[2020-07-11] MEDS: ZINC SULFATE 220 MG CAPSULE PO SCH ×2 (08:39→20:01)
[2020-07-11] MEDS: APIXABAN 5 MG TABLET PO SCH ×2 (08:39→20:01)
[2020-07-11 08:40] LABS: O2 DEVICE,BLOOD GAS VENTILATOR (ROOM AIR); PEEP,BG 5 cm H2O; VT, ABG 450 ml
[2020-07-11] MEDS: INSULIN GLARGINE,HUM.REC.ANLOG 100 UNITS/ML SQ SCH ×2 (08:40→20:38)
[2020-07-11 12:00] VITALS: BP 132/84
[2020-07-11] MEDS: DEXMEDETOMIDINE HCL 200 MCG in SODIUM CHLORIDE 0.9% 48 ML IV PRN (13:47)
[2020-07-11] MEDS: LEVOFLOXACIN 750 MG/D5% WATER 150 ML IV SCH (13:48)
[2020-07-11 16:00] VITALS: BP 130/68
[2020-07-11 17:03] LABS: ABG A-A DIFF O2 237.8 mmHg (10-20.0); ABG BASE EXCESS 2.2 mmol/L (-2.0-3.0); ABG CARBOXYHEMOGLOBIN 0.9 % (0.0-1.5); ABG HCO3 26.3 mmol/L (22.0-26.0); ABG METHEMOGLOBIN 0.3 % (0.0-1.5); ABG OXYGEN CONTENT 15.8 mL/dL (15.0-23.0); ABG OXYGEN SATURATION 94.2 % (95.0-98.0); ABG OXYHEMOGLOBIN 93.1 % (94.0-100.0); ABG PCO2 40 mmHg (35-45); ABG PH 7.441 (7.35-7.450); PO2, ARTERIAL BG 73.8 mmHg (84.0-92.0); SOURCE, BLOOD GAS ARTERIAL; TEMPERATURE, FAHRENHEIT, BG 99.2 FAHREN (96.0-98.6)
[2020-07-11 17:04] LABS: O2 DEVICE,BLOOD GAS VENTILATOR (ROOM AIR); PEEP,BG 0 cm H2O; SITE, BLOOD GAS RT RADIAL; VENT MODE, BG CPAP (ROOM AIR); VT, ABG 450 ml
[2020-07-11 17:05] LABS: PRESSURE SUPPORT, BG 8 cm H2O
[2020-07-11 20:00] VITALS: BP 108/65
[2020-07-12] VITALS: BP 108/66
[2020-07-12] MEDS: PROPOFOL 1000 MG/ISO-OSM 100 ML IV PRN ×5 (03:34→20:54)
[2020-07-12] MEDS ORDERED: SODIUM CHLORIDE 0.9% 250 ML IV ONE ×2 (03:51→18:41)
[2020-07-12 04:00] VITALS: BP 106/61
[2020-07-12 05:22] LABS: ALANINE AMINOTRANSFERASE 26 U/L (12-78); ALBUMIN 3.8 g/dL (3.4-5.0); ALKALINE PHOSPHATASE 57 U/L (46-116); ANION GAP 3 mmol/L (8-16); ASPARTATE AMINOTRANSFERASE 19 U/L (15-37); BILIRUBIN,TOTAL 0.9 mg/dL (0.1-1.0); C-REACTIVE PROTEIN QUANT 0.74 mg/dL (0.00-0.30); CALCIUM, TOTAL 8.9 mg/dL (8.8-10.5); CARBON DIOXIDE 30 mmol/L (22-29); CHLORIDE 106 mmol/L (98-107); CREATININE 0.63 mg/dL (0.60-1.30); GLOMERULAR FILTR. RATE CALC > 60 mL/min (>60); GLUCOSE,RANDOM 186 mg/dL (70-110); POTASSIUM 3.6 mmol/L (3.5-5.1); SODIUM SERUM 139 mmol/L (136-145); TOTAL PROTEIN, SERUM 6.4 g/dL (6.4-8.2); UREA NITROGEN, BLOOD 48 mg/dL (7-18)
[2020-07-12] MEDS: INSULIN LISPRO 100 UNITS/ML SQ PRN ×3 (06:18→18:04)
[2020-07-12] MEDS: DEXMEDETOMIDINE HCL 200 MCG in SODIUM CHLORIDE 0.9% 48 ML IV PRN (07:50)
[2020-07-12 08:00] VITALS: BP 129/74
[2020-07-12] MEDS: ASCORBIC ACID 500 MG TABLET PO SCH ×2 (08:23→20:01)
[2020-07-12] MEDS: APIXABAN 5 MG TABLET PO SCH ×2 (08:23→20:00)
[2020-07-12] MEDS: FAMOTIDINE 20 MG TABLET PO SCH ×2 (08:23→20:00)
[2020-07-12] MEDS: MAGNESIUM HYDROXIDE SUSPENSION 30 ML UDCUP PO PRN (08:23)
[2020-07-12] MEDS: CHOLECALCIFEROL (VIT D3) 1,000 UNITS [25 MCG] TABLET PO SCH (08:23)
[2020-07-12] MEDS: ZINC SULFATE 220 MG CAPSULE PO SCH ×2 (08:23→20:00)
[2020-07-12] MEDS: DEXAMETHASONE 2 MG TABLET PO SCH (08:23)
[2020-07-12] MEDS: DOCUSATE SODIUM 100 MG CAPSULE PO SCH ×2 (08:24→20:00)
[2020-07-12] MEDS: AMINO ACIDS/PROTEIN HYDROLYS 30 ML TUBE PO SCH (08:24)
[2020-07-12] MEDS: INSULIN GLARGINE,HUM.REC.ANLOG 100 UNITS/ML SQ SCH ×2 (08:25→20:44)
[2020-07-12 10:16] LABS: ABG A-A DIFF O2 222.7 mmHg (10-20.0); ABG BASE EXCESS 4.3 mmol/L (-2.0-3.0); ABG CARBOXYHEMOGLOBIN 0.4 % (0.0-1.5); ABG METHEMOGLOBIN 0.3 % (0.0-1.5); ABG OXYGEN CONTENT 14.3 mL/dL (15.0-23.0); ABG OXYGEN SATURATION 89.5 % (95.0-98.0); ABG OXYHEMOGLOBIN 88.9 % (94.0-100.0); ABG PCO2 38 mmHg (35-45); ABG PH 7.478 (7.35-7.450); ABG TOTAL HEMOGLOBIN 11.4 G/dL (12.0-18.0); CPAP, BG 5 cm H2O; O2 DEVICE,BLOOD GAS VENTILATOR (ROOM AIR); PEEP,BG 5 cm H2O; PO2, ARTERIAL BG 54.5 mmHg (84.0-92.0); PRESSURE SUPPORT, BG 8 cm H2O; SITE, BLOOD GAS RT RADIAL; SOURCE, BLOOD GAS ARTERIAL; TEMPERATURE, FAHRENHEIT, BG 98.6 FAHREN (96.0-98.6); VENT MODE, BG SPONTANEOUS (ROOM AIR)
[2020-07-12 10:17] LABS: SPONTANEOUS VT, BG 580 ml
[2020-07-12] MEDS: ACETAMINOPHEN 325 MG TABLET PO PRN (11:58)
[2020-07-12 12:00] VITALS: BP 105/53
[2020-07-12] MEDS: LEVOFLOXACIN 750 MG/D5% WATER 150 ML IV SCH (13:42)
[2020-07-12 16:00] VITALS: BP 105/59
[2020-07-12 20:00] VITALS: BP 107/60
[2020-07-13] VITALS: BP 118/64
[2020-07-13] MEDS: INSULIN LISPRO 100 UNITS/ML SQ PRN ×3 (00:47→13:06)
[2020-07-13] MEDS: PROPOFOL 1000 MG/ISO-OSM 100 ML IV PRN ×3 (01:46→10:43)
[2020-07-13 04:00] VITALS: BP 114/66
[2020-07-13 08:00] VITALS: BP 113/61
[2020-07-13] MEDS: AMINO ACIDS/PROTEIN HYDROLYS 30 ML TUBE PO SCH (08:43)
[2020-07-13] MEDS: APIXABAN 5 MG TABLET PO SCH ×2 (08:44→20:22)
[2020-07-13] MEDS: ZINC SULFATE 220 MG CAPSULE PO SCH ×2 (08:44→20:22)
[2020-07-13] MEDS: ASCORBIC ACID 500 MG TABLET PO SCH ×2 (08:44→20:22)
[2020-07-13] MEDS: FAMOTIDINE 20 MG TABLET PO SCH ×2 (08:45→20:22)
[2020-07-13] MEDS: CHOLECALCIFEROL (VIT D3) 1,000 UNITS [25 MCG] TABLET PO SCH (08:45)
[2020-07-13] MEDS: DOCUSATE SODIUM 100 MG CAPSULE PO SCH ×2 (08:45→20:22)
[2020-07-13] MEDS: INSULIN GLARGINE,HUM.REC.ANLOG 100 UNITS/ML SQ SCH ×2 (08:47→20:25)
[2020-07-13] MEDS: DEXAMETHASONE 2 MG TABLET PO SCH (09:32)
[2020-07-13] MEDS: HYDROCODONE/ACETAMINOPHEN 5-325 MG TABLET PO PRN (10:42)
[2020-07-13 12:00] VITALS: BP 124/68
[2020-07-13] MEDS: LEVOFLOXACIN 750 MG/D5% WATER 150 ML IV SCH (13:05)
[2020-07-13 14:57] LABS: ABG A-A DIFF O2 177.7 mmHg (10-20.0); ABG BASE EXCESS 2.7 mmol/L (-2.0-3.0); ABG CARBOXYHEMOGLOBIN 0.6 % (0.0-1.5); ABG HCO3 26.7 mmol/L (22.0-26.0); ABG METHEMOGLOBIN 0.3 % (0.0-1.5); ABG OXYGEN CONTENT 15.5 mL/dL (15.0-23.0); ABG OXYGEN SATURATION 97.4 % (95.0-98.0); ABG OXYHEMOGLOBIN 96.5 % (94.0-100.0); ABG PCO2 41 mmHg (35-45); ABG PH 7.439 (7.35-7.450); ABG TOTAL HEMOGLOBIN 11.3 G/dL (12.0-18.0); PO2, ARTERIAL BG 96.6 mmHg (84.0-92.0); SITE, BLOOD GAS LFT RADIAL; SOURCE, BLOOD GAS ARTERIAL; TEMPERATURE, FAHRENHEIT, BG 99.1 FAHREN (96.0-98.6)
[2020-07-13 14:58] LABS: CPAP, BG 5 cm H2O; O2 DEVICE,BLOOD GAS VENTILATOR (ROOM AIR); PRESSURE SUPPORT, BG 8 cm H2O; VENT MODE, BG CPAP (ROOM AIR)
[2020-07-13 16:00] VITALS: BP 140/78
[2020-07-13 20:00] VITALS: BP 122/58
[2020-07-14] VITALS (8 sets, daily range): BP systolic 112–157; BP diastolic 65–93
[2020-07-14] MEDS: HYDROCODONE/ACETAMINOPHEN 5-325 MG TABLET PO PRN ×2 (00:18→20:09)
[2020-07-14] MEDS: MAGNESIUM HYDROXIDE SUSPENSION 30 ML UDCUP PO PRN (00:18)
[2020-07-14] MEDS: INSULIN GLARGINE,HUM.REC.ANLOG 100 UNITS/ML SQ SCH ×2 (09:00→20:11)
[2020-07-14] MEDS: AMINO ACIDS/PROTEIN HYDROLYS 30 ML TUBE PO SCH (09:11)
[2020-07-14] MEDS: ASCORBIC ACID 500 MG TABLET PO SCH ×2 (09:19→20:09)
[2020-07-14] MEDS: FAMOTIDINE 20 MG TABLET PO SCH ×2 (09:19→20:09)
[2020-07-14] MEDS: DEXAMETHASONE 2 MG TABLET PO SCH (09:19)
[2020-07-14] MEDS: DOCUSATE SODIUM 100 MG CAPSULE PO SCH ×2 (09:19→20:09)
[2020-07-14] MEDS: APIXABAN 5 MG TABLET PO SCH ×2 (09:19→20:09)
[2020-07-14] MEDS: CHOLECALCIFEROL (VIT D3) 1,000 UNITS [25 MCG] TABLET PO SCH (09:20)
[2020-07-14] MEDS: ZINC SULFATE 220 MG CAPSULE PO SCH ×2 (09:20→20:09)
[2020-07-14] MEDS: INSULIN LISPRO 100 UNITS/ML SQ PRN ×2 (11:50→17:45)
[2020-07-14] MEDS: LEVOFLOXACIN 750 MG/D5% WATER 150 ML IV SCH (12:52)
[2020-07-15 03:37] VITALS: BP 122/75
[2020-07-15 06:15] LABS: BASOPHILS % (AUTO) 0.5 % (0.0-2.0); EOSINOPHILS % (AUTO) 3.8 % (1.0-6.0); HEMATOCRIT 35.5 % (36-46); HEMOGLOBIN 12.2 g/dL (12.0-16.0); LYMPHOCYTES # (AUTO) 2.6 K/uL (1.0-4.8); LYMPHOCYTES % (AUTO) 24.4 % (22.0-44.0); MEAN CORPUSCULAR HGB CONC 34.3 G/dL (31.0-37.0); MEAN CORPUSCULAR VOLUME 99 fL (80-100); MONOCYTES # (AUTO) 0.9 K/uL (0.1-1.0); MONOCYTES % (AUTO) 8.3 % (2.0-9.0); NEUTROPHILS # (AUTO) 6.6 K/uL (1.8-7.7); PLATELET COUNT (AUTO) 241 K/uL (150-450); RED BLOOD CELL COUNT(AUTO) 3.58 MIL/uL (4.00-5.20); RED CELL DISTRIBUTION WIDTH 14.5 % (11.5-14.5)
[2020-07-15 06:27] LABS: ANION GAP 9 mmol/L (8-16); C-REACTIVE PROTEIN QUANT 0.71 mg/dL (0.00-0.30); CALCIUM, TOTAL 8.6 mg/dL (8.8-10.5); CARBON DIOXIDE 27 mmol/L (22-29); CHLORIDE 108 mmol/L (98-107); CREATININE 0.69 mg/dL (0.60-1.30); GLOMERULAR FILTR. RATE CALC > 60 mL/min (>60); GLUCOSE,RANDOM 119 mg/dL (70-110); POTASSIUM 3.6 mmol/L (3.5-5.1); SODIUM SERUM 144 mmol/L (136-145); UREA NITROGEN, BLOOD 32 mg/dL (7-18)
[2020-07-15] MEDS: FAMOTIDINE 20 MG TABLET PO SCH ×2 (08:38→21:28)
[2020-07-15] MEDS: ZINC SULFATE 220 MG CAPSULE PO SCH ×2 (08:38→21:28)
[2020-07-15] MEDS: ASCORBIC ACID 500 MG TABLET PO SCH ×2 (08:38→21:28)
[2020-07-15] MEDS: APIXABAN 5 MG TABLET PO SCH ×2 (08:38→21:28)
[2020-07-15] MEDS: CHOLECALCIFEROL (VIT D3) 1,000 UNITS [25 MCG] TABLET PO SCH (08:38)
[2020-07-15] MEDS: DOCUSATE SODIUM 100 MG CAPSULE PO SCH ×2 (08:38→21:28)
[2020-07-15] MEDS: LEVOFLOXACIN 750 MG TABLET PO SCH (08:42)
[2020-07-15] MEDS: INSULIN GLARGINE,HUM.REC.ANLOG 100 UNITS/ML SQ SCH ×2 (08:54→21:31)
[2020-07-15] MEDS: AMINO ACIDS/PROTEIN HYDROLYS 30 ML TUBE PO SCH (08:54)
[2020-07-15 10:19] VITALS: BP 142/78
[2020-07-15 10:45] LABS: GLUCOMETER DEV NAME(LOC) 5N.3; GLUCOSE,POINT OF CARE 135 MG/DL (70-110)
[2020-07-15 10:45] LABS: GLUCOMETER DEV NAME(LOC) 5N.1; GLUCOSE,POINT OF CARE 106 MG/DL (70-110)
[2020-07-15] MEDS: ACETAMINOPHEN 325 MG TABLET PO PRN ×2 (12:39→22:59)
[2020-07-15 13:01] LABS: GLUCOMETER DEV NAME(LOC) 5N.3; GLUCOSE,POINT OF CARE 115 MG/DL (70-110)
[2020-07-15 16:15] VITALS: BP 124/70
[2020-07-15 20:34] LABS: GLUCOMETER DEV NAME(LOC) 5N.3; GLUCOSE,POINT OF CARE 125 MG/DL (70-110)
[2020-07-15 20:51] VITALS: BP 124/75
[2020-07-15] MEDS: INSULIN LISPRO 100 UNITS/ML SQ PRN (21:31)
[2020-07-16 00:43] VITALS: BP 128/81
[2020-07-16 01:30] LABS: GLUCOMETER DEV NAME(LOC) 5N.3; GLUCOSE,POINT OF CARE 146 MG/DL (70-110)
[2020-07-16 04:25] VITALS: BP 100/61
[2020-07-16] MEDS: HYDROCODONE/ACETAMINOPHEN 5-325 MG TABLET PO PRN ×2 (04:25→20:47)
[2020-07-16 07:34] LABS: GLUCOMETER DEV NAME(LOC) 5N.3; GLUCOSE,POINT OF CARE 74 MG/DL (70-110)
[2020-07-16 08:10] VITALS: BP 111/71
[2020-07-16 08:17] LABS: BASOPHILS % (AUTO) 0.7 % (0.0-2.0); EOSINOPHILS % (AUTO) 8.4 % (1.0-6.0); HEMATOCRIT 35.7 % (36-46); HEMOGLOBIN 11.7 g/dL (12.0-16.0); LYMPHOCYTES # (AUTO) 2.1 K/uL (1.0-4.8); LYMPHOCYTES % (AUTO) 26.2 % (22.0-44.0); MEAN CORPUSCULAR HEMOGLOBIN 32.5 pg (26.0-34.0); MEAN CORPUSCULAR HGB CONC 32.7 G/dL (31.0-37.0); MEAN CORPUSCULAR VOLUME 99 fL (80-100); MONOCYTES # (AUTO) 0.6 K/uL (0.1-1.0); MONOCYTES % (AUTO) 7.2 % (2.0-9.0); NEUTROPHILS # (AUTO) 4.7 K/uL (1.8-7.7); NEUTROPHILS % (AUTO) 57.5 % (40.0-70.0); PLATELET COUNT (AUTO) 229 K/uL (150-450); RED BLOOD CELL COUNT(AUTO) 3.59 MIL/uL (4.00-5.20); RED CELL DISTRIBUTION WIDTH 14.7 % (11.5-14.5)
[2020-07-16 08:32] LABS: ANION GAP 10 mmol/L (8-16); CALCIUM, TOTAL 8.5 mg/dL (8.8-10.5); CARBON DIOXIDE 23 mmol/L (22-29); CHLORIDE 107 mmol/L (98-107); CREATININE 0.56 mg/dL (0.60-1.30); GLOMERULAR FILTR. RATE CALC > 60 mL/min (>60); GLUCOSE,RANDOM 111 mg/dL (70-110); POTASSIUM 3.6 mmol/L (3.5-5.1); SODIUM SERUM 140 mmol/L (136-145); UREA NITROGEN, BLOOD 27 mg/dL (7-18)
[2020-07-16] MEDS: APIXABAN 5 MG TABLET PO SCH ×2 (08:43→20:47)
[2020-07-16] MEDS: ZINC SULFATE 220 MG CAPSULE PO SCH ×2 (08:43→20:47)
[2020-07-16] MEDS: DOCUSATE SODIUM 100 MG CAPSULE PO SCH ×2 (08:43→20:47)
[2020-07-16] MEDS: LEVOFLOXACIN 750 MG TABLET PO SCH (08:43)
[2020-07-16] MEDS: FAMOTIDINE 20 MG TABLET PO SCH ×2 (08:43→20:47)
[2020-07-16] MEDS: INSULIN GLARGINE,HUM.REC.ANLOG 100 UNITS/ML SQ SCH ×2 (08:43→20:49)
[2020-07-16] MEDS: CHOLECALCIFEROL (VIT D3) 1,000 UNITS [25 MCG] TABLET PO SCH (08:43)
[2020-07-16] MEDS: ASCORBIC ACID 500 MG TABLET PO SCH ×2 (08:43→20:47)
[2020-07-16] MEDS: AMINO ACIDS/PROTEIN HYDROLYS 30 ML TUBE PO SCH (08:43)
[2020-07-16 11:46] VITALS: BP 139/85
[2020-07-16 14:36] LABS: GLUCOMETER DEV NAME(LOC) 5N.1; GLUCOSE,POINT OF CARE 117 MG/DL (70-110)
[2020-07-16 16:37] VITALS: BP 135/92
[2020-07-16 19:55] VITALS: BP 125/74
[2020-07-16] MEDS: INSULIN LISPRO 100 UNITS/ML SQ PRN (20:49)
[2020-07-16 20:51] LABS: GLUCOMETER DEV NAME(LOC) 5N.1; GLUCOSE,POINT OF CARE 190 MG/DL (70-110)
[2020-07-17] VITALS: BP 118/64
[2020-07-17 04:00] VITALS: BP 119/77
[2020-07-17] MEDS: INSULIN LISPRO 100 UNITS/ML SQ PRN ×4 (05:45→22:50)
[2020-07-17 07:22] VITALS: BP 135/80
[2020-07-17] MEDS: AMINO ACIDS/PROTEIN HYDROLYS 30 ML TUBE PO SCH (08:47)
[2020-07-17] MEDS: FAMOTIDINE 20 MG TABLET PO SCH ×2 (08:48→22:47)
[2020-07-17] MEDS: DOCUSATE SODIUM 100 MG CAPSULE PO SCH ×2 (08:48→22:47)
[2020-07-17] MEDS: APIXABAN 5 MG TABLET PO SCH ×2 (08:48→22:47)
[2020-07-17] MEDS: ASCORBIC ACID 500 MG TABLET PO SCH ×2 (08:48→22:47)
[2020-07-17] MEDS: LEVOFLOXACIN 750 MG TABLET PO SCH (08:48)
[2020-07-17] MEDS: CHOLECALCIFEROL (VIT D3) 1,000 UNITS [25 MCG] TABLET PO SCH (08:49)
[2020-07-17] MEDS: ZINC SULFATE 220 MG CAPSULE PO SCH ×2 (08:49→22:47)
[2020-07-17] MEDS: INSULIN GLARGINE,HUM.REC.ANLOG 100 UNITS/ML SQ SCH ×2 (08:50→22:50)
[2020-07-17 11:10] VITALS: BP 132/72
[2020-07-17 15:42] VITALS: BP 138/78
[2020-07-17 20:30] VITALS: BP 136/77
[2020-07-17] MEDS: HYDROCODONE/ACETAMINOPHEN 5-325 MG TABLET PO PRN (23:02)
[2020-07-18 00:40] VITALS: BP 139/84
[2020-07-18 04:22] VITALS: BP 132/64
[2020-07-18 05:00] LABS: GLUCOMETER DEV NAME(LOC) 5N.1B; GLUCOSE,POINT OF CARE 263 MG/DL (70-110)
[2020-07-18] MEDS: INSULIN LISPRO 100 UNITS/ML SQ PRN ×4 (05:34→21:38)
[2020-07-18 08:14] VITALS: BP 121/77
[2020-07-18] MEDS: CHOLECALCIFEROL (VIT D3) 1,000 UNITS [25 MCG] TABLET PO SCH (08:45)
[2020-07-18] MEDS: APIXABAN 5 MG TABLET PO SCH ×2 (08:46→21:36)
[2020-07-18] MEDS: ASCORBIC ACID 500 MG TABLET PO SCH ×2 (08:46→21:36)
[2020-07-18] MEDS: FAMOTIDINE 20 MG TABLET PO SCH ×2 (08:46→21:36)
[2020-07-18] MEDS: LEVOFLOXACIN 750 MG TABLET PO SCH (08:46)
[2020-07-18] MEDS: DOCUSATE SODIUM 100 MG CAPSULE PO SCH ×2 (08:46→21:00)
[2020-07-18] MEDS: ZINC SULFATE 220 MG CAPSULE PO SCH ×2 (08:46→21:36)
[2020-07-18] MEDS: INSULIN GLARGINE,HUM.REC.ANLOG 100 UNITS/ML SQ SCH ×2 (08:47→21:37)
[2020-07-18] MEDS: AMINO ACIDS/PROTEIN HYDROLYS 30 ML TUBE PO SCH (11:14)
[2020-07-18 11:31] VITALS: BP 127/78
[2020-07-18 13:14] LABS: GLUCOMETER DEV NAME(LOC) 5N.1B; GLUCOSE,POINT OF CARE 200 MG/DL (70-110)
[2020-07-18 16:02] VITALS: BP 155/91
[2020-07-18 16:40] LABS: GLUCOSE,POINT OF CARE 211 MG/DL (70-110)
[2020-07-18 16:40] LABS: GLUCOSE,POINT OF CARE 184 MG/DL (70-110)
[2020-07-18 16:40] LABS: GLUCOSE,POINT OF CARE 178 MG/DL (70-110)
[2020-07-18 16:40] LABS: GLUCOSE,POINT OF CARE 185 MG/DL (70-110)
[2020-07-18 16:41] LABS: GLUCOSE,POINT OF CARE 141 MG/DL (70-110)
[2020-07-18 16:41] LABS: GLUCOSE,POINT OF CARE 213 MG/DL (70-110)
[2020-07-18 16:41] LABS: GLUCOSE,POINT OF CARE 214 MG/DL (70-110)
[2020-07-18 16:41] LABS: GLUCOSE,POINT OF CARE 267 MG/DL (70-110)
[2020-07-18 16:42] LABS: GLUCOSE,POINT OF CARE 154 MG/DL (70-110)
[2020-07-18 16:42] LABS: GLUCOSE,POINT OF CARE 181 MG/DL (70-110)
[2020-07-18 16:42] LABS: GLUCOSE,POINT OF CARE 227 MG/DL (70-110)
[2020-07-18 16:42] LABS: GLUCOSE,POINT OF CARE 169 MG/DL (70-110)
[2020-07-18 16:42] LABS: GLUCOSE,POINT OF CARE 206 MG/DL (70-110)
[2020-07-18 19:02] LABS: GLUCOMETER DEV NAME(LOC) 5S.1; GLUCOSE,POINT OF CARE 168 MG/DL (70-110)
[2020-07-18 19:03] LABS: GLUCOMETER DEV NAME(LOC) 5N.3; GLUCOSE,POINT OF CARE 197 MG/DL (70-110)
[2020-07-18 19:03] LABS: GLUCOMETER DEV NAME(LOC) 5N.3; GLUCOSE,POINT OF CARE 191 MG/DL (70-110)
[2020-07-18 19:03] LABS: GLUCOMETER DEV NAME(LOC) 5N.3; GLUCOSE,POINT OF CARE 165 MG/DL (70-110)
[2020-07-18 19:04] LABS: GLUCOMETER DEV NAME(LOC) 5N.3; GLUCOSE,POINT OF CARE 157 MG/DL (70-110)
[2020-07-18 19:19] LABS: GLUCOSE,POINT OF CARE 113 MG/DL (70-110)
[2020-07-18 19:19] LABS: GLUCOSE,POINT OF CARE 264 MG/DL (70-110)
[2020-07-18 19:19] LABS: GLUCOSE,POINT OF CARE 202 MG/DL (70-110)
[2020-07-18 19:19] LABS: GLUCOSE,POINT OF CARE 195 MG/DL (70-110)
[2020-07-18 19:20] LABS: GLUCOSE,POINT OF CARE 181 MG/DL (70-110)
[2020-07-18 19:20] LABS: GLUCOSE,POINT OF CARE 203 MG/DL (70-110)
[2020-07-18 19:21] LABS: GLUCOSE,POINT OF CARE 74 MG/DL (70-110)
[2020-07-18 19:21] LABS: GLUCOSE,POINT OF CARE 216 MG/DL (70-110)
[2020-07-18 19:21] LABS: GLUCOSE,POINT OF CARE 78 MG/DL (70-110)
[2020-07-18 19:21] LABS: GLUCOSE,POINT OF CARE 104 MG/DL (70-110)
[2020-07-18 20:07] VITALS: BP 120/71
[2020-07-18] MEDS: HYDROCODONE/ACETAMINOPHEN 5-325 MG TABLET PO PRN (21:40)
[2020-07-18 21:59] LABS: GLUCOMETER DEV NAME(LOC) 5N.1B; GLUCOSE,POINT OF CARE 213 MG/DL (70-110)
[2020-07-19 00:09] VITALS: BP 113/66
[2020-07-19 05:54] VITALS: BP 128/73
[2020-07-19] MEDS: INSULIN LISPRO 100 UNITS/ML SQ PRN ×4 (07:01→23:22)
[2020-07-19 07:25] LABS: BASOPHILS % (AUTO) 0.6 % (0.0-2.0); EOSINOPHILS % (AUTO) 7.3 % (1.0-6.0); HEMATOCRIT 33.2 % (36-46); HEMOGLOBIN 11.1 g/dL (12.0-16.0); LYMPHOCYTES # (AUTO) 1.8 K/uL (1.0-4.8); LYMPHOCYTES % (AUTO) 25.3 % (22.0-44.0); MEAN CORPUSCULAR HGB CONC 33.4 G/dL (31.0-37.0); MEAN CORPUSCULAR VOLUME 99 fL (80-100); MONOCYTES # (AUTO) 0.6 K/uL (0.1-1.0); MONOCYTES % (AUTO) 7.9 % (2.0-9.0); NEUTROPHILS # (AUTO) 4.1 K/uL (1.8-7.7); NEUTROPHILS % (AUTO) 58.9 % (40.0-70.0); PLATELET COUNT (AUTO) 241 K/uL (150-450); RED BLOOD CELL COUNT(AUTO) 3.36 MIL/uL (4.00-5.20); RED CELL DISTRIBUTION WIDTH 15.3 % (11.5-14.5)
[2020-07-19 07:40] LABS: ANION GAP 10 mmol/L (8-16); CALCIUM, TOTAL 8.5 mg/dL (8.8-10.5); CARBON DIOXIDE 26 mmol/L (22-29); CHLORIDE 103 mmol/L (98-107); CREATININE 0.56 mg/dL (0.60-1.30); GLOMERULAR FILTR. RATE CALC > 60 mL/min (>60); GLUCOSE,RANDOM 187 mg/dL (70-110); POTASSIUM 3.7 mmol/L (3.5-5.1); SODIUM SERUM 139 mmol/L (136-145); UREA NITROGEN, BLOOD 23 mg/dL (7-18)
[2020-07-19 07:52] VITALS: BP 127/74
[2020-07-19] MEDS: LEVOFLOXACIN 750 MG TABLET PO SCH (08:46)
[2020-07-19] MEDS: ZINC SULFATE 220 MG CAPSULE PO SCH ×2 (08:46→23:20)
[2020-07-19] MEDS: ASCORBIC ACID 500 MG TABLET PO SCH ×2 (08:46→23:20)
[2020-07-19] MEDS: APIXABAN 5 MG TABLET PO SCH ×2 (08:46→23:19)
[2020-07-19] MEDS: CHOLECALCIFEROL (VIT D3) 1,000 UNITS [25 MCG] TABLET PO SCH (08:46)
[2020-07-19] MEDS: FAMOTIDINE 20 MG TABLET PO SCH ×2 (08:46→23:19)
[2020-07-19] MEDS: INSULIN GLARGINE,HUM.REC.ANLOG 100 UNITS/ML SQ SCH ×2 (08:47→23:21)
[2020-07-19] MEDS: DOCUSATE SODIUM 100 MG CAPSULE PO SCH ×2 (09:00→23:19)
[2020-07-19] MEDS: AMINO ACIDS/PROTEIN HYDROLYS 30 ML TUBE PO SCH (09:55)
[2020-07-19 11:49] VITALS: BP 137/83
[2020-07-19 13:52] LABS: GLUCOMETER DEV NAME(LOC) 5N.3; GLUCOSE,POINT OF CARE 251 MG/DL (70-110)
[2020-07-19] MEDS: ACETAMINOPHEN 325 MG TABLET PO PRN (15:44)
[2020-07-19 16:15] VITALS: BP 138/73
[2020-07-19 17:16] LABS: GLUCOMETER DEV NAME(LOC) 5N.1B; GLUCOSE,POINT OF CARE 199 MG/DL (70-110)
[2020-07-19] MEDS: HYDROCODONE/ACETAMINOPHEN 5-325 MG TABLET PO PRN (17:41)
[2020-07-19 21:48] VITALS: BP 117/71
[2020-07-20] VITALS (7 sets, daily range): BP systolic 99–133; BP diastolic 65–87
[2020-07-20] MEDS: INSULIN LISPRO 100 UNITS/ML SQ PRN ×4 (06:50→19:58)
[2020-07-20 07:43] LABS: GLUCOMETER DEV NAME(LOC) 5S.2B; GLUCOSE,POINT OF CARE 191 MG/DL (70-110)
[2020-07-20] MEDS: FAMOTIDINE 20 MG TABLET PO SCH ×2 (08:33→19:56)
[2020-07-20] MEDS: ASCORBIC ACID 500 MG TABLET PO SCH ×2 (08:33→20:00)
[2020-07-20] MEDS: DOCUSATE SODIUM 100 MG CAPSULE PO SCH ×2 (08:33→19:56)
[2020-07-20] MEDS: CHOLECALCIFEROL (VIT D3) 1,000 UNITS [25 MCG] TABLET PO SCH (08:33)
[2020-07-20] MEDS: ZINC SULFATE 220 MG CAPSULE PO SCH ×2 (08:33→19:56)
[2020-07-20] MEDS: APIXABAN 5 MG TABLET PO SCH ×2 (08:33→19:56)
[2020-07-20] MEDS: AMINO ACIDS/PROTEIN HYDROLYS 30 ML TUBE PO SCH (08:34)
[2020-07-20] MEDS: INSULIN GLARGINE,HUM.REC.ANLOG 100 UNITS/ML SQ SCH ×2 (08:36→19:58)
[2020-07-20] MEDS: HYDROCODONE/ACETAMINOPHEN 5-325 MG TABLET PO PRN ×2 (08:54→19:56)
[2020-07-20] MEDS: LEVOFLOXACIN 750 MG TABLET PO SCH (10:06)
[2020-07-20 11:19] LABS: GLUCOMETER DEV NAME(LOC) 5N.3; GLUCOSE,POINT OF CARE 308 MG/DL (70-110)
[2020-07-20 11:19] LABS: GLUCOMETER DEV NAME(LOC) 5N.3; GLUCOSE,POINT OF CARE 215 MG/DL (70-110)
[2020-07-20 11:47] LABS: GLUCOMETER DEV NAME(LOC) 5S.1; GLUCOSE,POINT OF CARE 214 MG/DL (70-110)
[2020-07-20 20:52] LABS: GLUCOMETER DEV NAME(LOC) 5N.1B; GLUCOSE,POINT OF CARE 202 MG/DL (70-110)
[2020-07-21] VITALS (7 sets, daily range): BP systolic 113–152; BP diastolic 73–98
[2020-07-21] MEDS: INSULIN LISPRO 100 UNITS/ML SQ PRN ×4 (06:09→21:05)
[2020-07-21] MEDS: DOCUSATE SODIUM 100 MG CAPSULE PO SCH ×2 (08:38→20:53)
[2020-07-21] MEDS: ZINC SULFATE 220 MG CAPSULE PO SCH ×2 (08:38→20:53)
[2020-07-21] MEDS: APIXABAN 5 MG TABLET PO SCH ×2 (08:38→20:53)
[2020-07-21] MEDS: CHOLECALCIFEROL (VIT D3) 1,000 UNITS [25 MCG] TABLET PO SCH (08:38)
[2020-07-21] MEDS: FAMOTIDINE 20 MG TABLET PO SCH ×2 (08:38→20:53)
[2020-07-21] MEDS: ASCORBIC ACID 500 MG TABLET PO SCH ×2 (08:38→20:53)
[2020-07-21] MEDS: INSULIN GLARGINE,HUM.REC.ANLOG 100 UNITS/ML SQ SCH ×2 (08:41→21:04)
[2020-07-21] MEDS: LEVOFLOXACIN 750 MG TABLET PO SCH (09:00)
[2020-07-21] MEDS: HYDROCODONE/ACETAMINOPHEN 5-325 MG TABLET PO PRN (20:53)
[2020-07-21 21:59] LABS: GLUCOMETER DEV NAME(LOC) 5S.1; GLUCOSE,POINT OF CARE 235 MG/DL (70-110)
[2020-07-22 01:45] LABS: GLUCOMETER DEV NAME(LOC) 5N.1B; GLUCOSE,POINT OF CARE 191 MG/DL (70-110)
[2020-07-22 05:04] VITALS: BP 122/68
[2020-07-22] MEDS: INSULIN LISPRO 100 UNITS/ML SQ PRN ×4 (06:15→20:44)
[2020-07-22 06:52] LABS: GLUCOMETER DEV NAME(LOC) 5N.3; GLUCOSE,POINT OF CARE 158 MG/DL (70-110)
[2020-07-22 06:53] LABS: GLUCOMETER DEV NAME(LOC) 5N.3; GLUCOSE,POINT OF CARE 166 MG/DL (70-110)
[2020-07-22 06:53] LABS: GLUCOMETER DEV NAME(LOC) 5N.3; GLUCOSE,POINT OF CARE 162 MG/DL (70-110)
[2020-07-22 07:18] LABS: GLUCOMETER DEV NAME(LOC) 5S.1; GLUCOSE,POINT OF CARE 187 MG/DL (70-110)
[2020-07-22] MEDS: AMINO ACIDS/PROTEIN HYDROLYS 30 ML TUBE PO SCH (08:00)
[2020-07-22] MEDS: CHOLECALCIFEROL (VIT D3) 1,000 UNITS [25 MCG] TABLET PO SCH (08:18)
[2020-07-22] MEDS: DOCUSATE SODIUM 100 MG CAPSULE PO SCH ×2 (08:18→20:42)
[2020-07-22] MEDS: FAMOTIDINE 20 MG TABLET PO SCH ×2 (08:18→20:42)
[2020-07-22] MEDS: ZINC SULFATE 220 MG CAPSULE PO SCH ×2 (08:18→20:42)
[2020-07-22] MEDS: APIXABAN 5 MG TABLET PO SCH ×2 (08:18→20:42)
[2020-07-22] MEDS: ASCORBIC ACID 500 MG TABLET PO SCH ×2 (08:18→20:42)
[2020-07-22 08:19] VITALS: BP 122/81
[2020-07-22] MEDS: INSULIN GLARGINE,HUM.REC.ANLOG 100 UNITS/ML SQ SCH ×2 (08:28→20:43)
[2020-07-22 12:01] VITALS: BP 138/82
[2020-07-22] MEDS ORDERED: APIX2.5T PO (14:01)
[2020-07-22 15:42] VITALS: BP 127/71
[2020-07-22 18:17] LABS: GLUCOMETER DEV NAME(LOC) 5N.1B; GLUCOSE,POINT OF CARE 139 MG/DL (70-110)
[2020-07-22 18:19] LABS: GLUCOMETER DEV NAME(LOC) 5N.3; GLUCOSE,POINT OF CARE 209 MG/DL (70-110)
[2020-07-22 20:00] VITALS: BP 123/60
[2020-07-22] MEDS: HYDROCODONE/ACETAMINOPHEN 5-325 MG TABLET PO PRN (20:53)
[2020-07-23 00:10] VITALS: BP 122/64
[2020-07-23 05:16] VITALS: BP 116/64
[2020-07-23 07:26] LABS: GLUCOMETER DEV NAME(LOC) 5N.1B; GLUCOSE,POINT OF CARE 242 MG/DL (70-110)
[2020-07-23 08:17] VITALS: BP 113/73
[2020-07-23] MEDS: APIXABAN 5 MG TABLET PO SCH (08:51)
[2020-07-23] MEDS: ASCORBIC ACID 500 MG TABLET PO SCH (08:51)
[2020-07-23] MEDS: DOCUSATE SODIUM 100 MG CAPSULE PO SCH (08:51)
[2020-07-23] MEDS: ZINC SULFATE 220 MG CAPSULE PO SCH (08:51)
[2020-07-23] MEDS: CHOLECALCIFEROL (VIT D3) 1,000 UNITS [25 MCG] TABLET PO SCH (08:51)
[2020-07-23] MEDS: FAMOTIDINE 20 MG TABLET PO SCH (08:51)
[2020-07-23] MEDS: AMINO ACIDS/PROTEIN HYDROLYS 30 ML TUBE PO SCH (08:52)
[2020-07-23] MEDS: INSULIN GLARGINE,HUM.REC.ANLOG 100 UNITS/ML SQ SCH (08:52)
[2020-07-23 11:19] VITALS: BP 122/79
[2020-07-23] MEDS ORDERED: INSLAN SQ (11:29)
[2020-07-23 12:03] LABS: GLUCOMETER DEV NAME(LOC) 5N.3; GLUCOSE,POINT OF CARE 114 MG/DL (70-110)
[2020-07-23] MEDS: INSULIN LISPRO 100 UNITS/ML SQ PRN (12:11)
[2020-07-23 16:42] LABS: GLUCOMETER DEV NAME(LOC) 5S.2B; GLUCOSE,POINT OF CARE 217 MG/DL (70-110)
== END 2020-07-23 15:25 | disposition home health service (06) | DRG 130 ==
LOC: EMS 20:34 → ICU 06-23 14:19 → 5N 07-14 21:30
PROVIDERS: ADMIT Hospitalist; ATTEND Hospitalist
PROC: 5A1955Z Respiratory Ventilation, Greater than 96 Consecutive Hours (ICD-10-PCS; principal; 2020-06-23)
PROC: 0BH17EZ Insertion of Endotracheal Airway into Trachea, Via Natural or Artificial Opening (ICD-10-PCS; 2020-06-23)
PROC: XW13325 Transfusion of Convalescent Plasma (Nonautologous) into Peripheral Vein, Percutaneous Approach, New Technology Group 5 (ICD-10-PCS; 2020-06-23)
PROC: XW033E5 Introduction of Remdesivir Anti-infective into Peripheral Vein, Percutaneous Approach, New Technology Group 5 (ICD-10-PCS; 2020-06-23)
PROC: 06HY33Z Insertion of Infusion Device into Lower Vein, Percutaneous Approach (ICD-10-PCS; 2020-07-09)
PROC: B54 Imaging, Veins, Ultrasonography (ICD-10-PCS; 2020-07-09)
DX: U07.1 COVID-19 (principal); J12.89 Other viral pneumonia; R65.11 Systemic inflammatory response syndrome (SIRS) of non-infectious origin with acute organ dysfunction; E44.0 Moderate protein-calorie malnutrition; J80 Acute respiratory distress syndrome; I10 Essential (primary) hypertension; D72.810 Lymphocytopenia; E11.65 Type 2 diabetes mellitus with hyperglycemia; E66.01 Morbid (severe) obesity due to excess calories; R13.10 Dysphagia, unspecified; D68.59 Other primary thrombophilia; Z68.38 Body mass index [BMI] 38.0-38.9, adult; Z79.01 Long term (current) use of anticoagulants; Z79.4 Long term (current) use of insulin; Z87.891 Personal history of nicotine dependence; Z82.49 Family history of ischemic heart disease and other diseases of the circulatory system
CPT/HCPCS: 36245; 36430; 36569; 36600; 76937; 82728; 82805; 83605; 83615; 83735; 84100; 84145; 84439; 84443; 85379; 85384; 86140; 86850; 86900; 86901; 86927; 87040; 87070; 87081; 87186; 87205; 87426; 87449; 87804; 87899; 92610; 93005; 94002; 94003; 97110; 97162; 97167; 97530; 97535; 99291; G0238; G0378; G0480; J0696; J1644; J1815; J1940; J1956; J2250; J2704; J3010; J3490; J7040; J7050; J7060; J8540; P9046; 36415-L1; 36415-TC; 71045-TC; U0003

== ENCOUNTER 2025-05-06 12:21 | Emergency (ER) | payer OTHER ==
[~2025-05-06] VITALS: Ht 154.9 cm; Wt 87.7 kg
[~2025-05-06 12:21] MED LIST: APIX2.5T PO; INSLAN SQ; INSU100V SQ; METF-1211 PO
[2025-05-06] MEDS: LIDOCAINE 5% TRANSDERMAL PATCH TD ONE (14:47)
[2025-05-06] MEDS: KETOROLAC TROMETHAMINE 30 MG/ML VIAL IM ONE (14:47)
[2025-05-06] MEDS ORDERED: TRAM50TA5 PO (18:41)
[2025-05-06] MEDS ORDERED: LIDO-57 TP (18:41)
[2025-05-06 18:53] VITALS: BP 144/89; PULSE 75; RESP 20; TEMP 98.1; O2SAT 95
== END 2025-05-06 18:54 | disposition home or self-care (01) ==
LOC: EMS 12:21
DX: M54.50 Low back pain, unspecified (principal); I10 Essential (primary) hypertension; E11.9 Type 2 diabetes mellitus without complications; J44.89 Other specified chronic obstructive pulmonary disease; Z79.01 Long term (current) use of anticoagulants; Z79.4 Long term (current) use of insulin
CPT/HCPCS: 99284; 72040; 72070; 72100; 96372; J1885